=== PATIENT | female | born 1960 | race Caucasian/White ===

== ENCOUNTER 2016-09-18 17:02 | Emergency (ER) | payer BC ==
[2016-09-18 17:51] VITALS: BP 112/84
--- NOTE | 2016-09-18 18:04 | UC ---
HPI Febrile Illness - HPI Summary HPI Summary: "I feel like I have the flu." Achey all over, feels feverish, chilled, "absolutely no energy", skin sensitivity, headache. Woke last night with OSEI and chills, didn't measure temp. Diagnosed with mild UTI 3d ago, her MD waited for culture result and then called in Macrobid which she started yesterday. No urinary symptoms today. No flank pain. MIld nausea, no vomiting or diarrhea. WAs able to force herself to eat some food today. 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 No flu shot this year - History of Current Complaint Chief Complaint: UCRespiratory Time Seen by Provider: 09/18/16 17:51 Hx Obtained From: Patient Timing: Constant Initial Severity: Mild Current Severity: Moderate Aggravating Factors: Nothing Alleviating Factors: Nothing Associated Signs and Symptoms: Arthralgia, Chills, Fluid Intake - decreased, Headache, Joint Pain, Myalgia, Nausea, Weakness - Risk Factors Pseudomonas Risk Factors: Negative Serious Bacterial Infection Risk Factors: Negative - Allergy/Home Medications Allergies/Adverse Reactions: Allergies Allergy/AdvReac Type Severity Reaction Status Date / Time Amoxicillin Allergy Unknown Unknown Verified 09/18/16 17:46 Reaction Details Codeine AdvReac Severe RAPID Verified 09/18/16 17:46 [From Tylenol W/Codeine] HEARTBEAT, JITTERY Celecoxib [From Celebrex] AdvReac Mild HORRIBLE Verified 09/18/16 17:46 CHEST PAIN Home Medications: Home Medications Acetaminophen [Acetaminophen Extra Stren] 1,000 mg PO Q6H PRN 09/18/16 [History Confirmed 09/18/16] Cyclobenzaprine TAB* [Flexeril TAB*] 10 mg PO TID PRN 09/18/16 [History Confirmed 09/18/16] Nitrofurantoin Macrocrystals* [Macrodantin*] 100 mg PO BID PRN 09/18/16 [ History Confirmed 09/18/16] PMH/Surg Hx/FS Hx/Imm Hx Previously Healthy: Yes Musculoskeletal History: Reports: Hx Arthritis - LOW BACK Sensory History: Denies: Hx Contacts or Glasses, Hx Hearing Aid Opthamlomology History: Denies: Hx Contacts or Glasses - Cancer History Hx Chemotherapy: No Hx Radiation Therapy: No - Surgical History Surgery Procedure, Year, and Place: 2009 BILATERAL BREAST REDUCTION, [place]. 2010 DILATION AND CURETTAGE, [facility]. 1984 & 1985 CSECTION X 2, [place]. 1986 OPEN CHOLECYSTECTOMY, [place]. may 2012 bilat breast biopsies, benign,HYSTERECTOMY 2014 Hx Anesthesia Reactions: No - Immunization History Date of Influenza Vaccine: none this year Infectious Disease History: No Infectious Disease History: Denies: Hx Clostridium Difficile, Hx Hepatitis, Hx Human Immunodeficiency Virus (HIV), Hx of Known/Suspected MRSA, Hx Shingles, Hx Tuberculosis, Hx Known/ Suspected VRE, Hx Known/Suspected VRSA, History Other Infectious Disease, Traveled Outside the [place] in Last 30 Days - Family History Known Family History: Positive: Other - No FMH urinary disorder - Social History Alcohol Use: Rare Substance Use Type: Reports: None Smoking Status (MU): Light Every Day Tobacco Smoker Type: Cigarettes Amount Used/How Often: 1/4 PPD Length of Time of Smoking/Using Tobacco: 35 Years Have You Smoked in the Last Year: Yes Review of Systems Constitutional: Chills, Fatigue Skin: Negative Eyes: Negative ENT: Negative Respiratory: Negative Cardiovascular: Negative Gastrointestinal: Other - nausea Genitourinary: Negative Motor: Negative Neurovascular: Negative Musculoskeletal: Arthralgia, Myalgia Neurological: Headache, Weakness Psychological: Negative All Other Systems Reviewed And Are Negative: Yes Physical Exam Triage Information Reviewed: Yes Appearance: Well-Appearing, No Pain Distress, Well-Nourished Vital Signs: Initial Vital Signs Temp 98.8 F 09/18/16 17:43 Pulse 102 09/18/16 17:43 Resp 16 09/18/16 17:43 BP 112/84 09/18/16 17:43 Pulse Ox 95 09/18/16 17:43 Vital Signs Reviewed: Yes Eye Exam: Normal ENT Exam: Normal ENT: Positive: Pharynx normal, TMs normal. Negative: Tonsillar swelling, Tonsillar exudate, Muffled/hoarse voice Neck exam: Normal Neck: Positive: Supple Respiratory Exam: Normal Cardiovascular Exam: Normal Musculoskeletal Exam: Normal Neurological Exam: Normal Psychological Exam: Normal Skin Exam: Normal Diagnostics - Laboratory Diagnostic Studies Completed/Ordered: flu neg Course/Dx - Febrile Illness Differential Diagnoses: Medication Reaction, Pneumonia, Viremia - Diagnoses Clinic Provider Diagnoses: viral syndrome Discharge - Discharge Plan Condition: Stable Disposition: HOME Patient Education Materials: Viral Syndrome (ED) Forms: *Work Release Referrals: Mercy Brown MD [Primary Care Provider] -
== END 2016-09-18 18:48 | disposition home or self-care (01) ==
LOC: UCCORT 17:02
DX: B34.9 Viral infection, unspecified (principal); Z88.5 Allergy status to narcotic agent; Z88.0 Allergy status to penicillin; Z88.8 Allergy status to other drugs, medicaments and biological substances; F17.210 Nicotine dependence, cigarettes, uncomplicated
CPT/HCPCS: 87502; 99211; G0463

== ENCOUNTER 2017-05-31 07:47 | Emergency (ER) | payer BC ==
--- NOTE | 2017-05-31 07:53 | UC ---
Lower Extremity/Ankle HPI - HPI Summary HPI Summary: 57 year old male with back pain. Here w/ RIGHT leg pain since Sunday05/27/17. Pt states it started out as low back pain radiating to RIGHT hip down leg/foot- denies any recent injury or fall. States last night pain flared up and was unable to sleep. Feels like aching pain in leg, and tingling sensatio in foot. Pain worse w/ ambulation, and better when leg elevated. Also tried ice w/ temporary relief. Taking 800mg ibuprofen prn, last dose yesterday. No incontinence, no drop foot, no weakness, no trauma or falls [ End ] - History of Current Complaint Chief Complaint: UCLowerExtremity Stated Complaint: RIGHT LEG PAIN Time Seen by Provider: 05/31/17 07:51 Hx Obtained From: Patient Hx Last Menstrual Period: 06/2014 ?: No Onset/Duration: Gradual Onset Severity Initially: Mild Severity Currently: Moderate Aggravating Factor(s): Standing Alleviating Factor(s): Rest Able to Bear Weight: Yes - Allergies/Home Medications Allergies/Adverse Reactions: Allergies Allergy/AdvReac Type Severity Reaction Status Date / Time Amoxicillin Allergy Severe Rash Verified 05/31/17 07:52 Codeine AdvReac Severe RAPID Verified 05/31/17 07:52 [From Tylenol W/Codeine] HEARTBEAT, JITTERY Celecoxib [From Celebrex] AdvReac Mild HORRIBLE Verified 05/31/17 07:52 CHEST PAIN PMH/Surg Hx/FS Hx/Imm Hx Previously Healthy: Yes - Surgical History Surgical History: Yes Surgery Procedure, Year, and Place: 2008 BILATERAL BREAST REDUCTION, [place]. 2010 DILATION AND CURETTAGE, [facility]. 1984 & 1985 CSECTION X 2, [place]. 1986 OPEN CHOLECYSTECTOMY, [place]. may 2012 bilat breast biopsies, benign,HYSTERECTOMY 2013 - Family History Known Family History: Positive: Other - No FMH urinary disorder - Social History Lives: With Family Alcohol Use: Rare Substance Use Type: None Smoking Status (MU): Light Every Day Tobacco Smoker Type: Cigarettes Amount Used/How Often: 1/4 PPD Length of Time of Smoking/Using Tobacco: 35 Years Have You Smoked in the Last Year: Yes Cessation Counseling: Patient Advised to Stop - Immunization History Most Recent Influenza Vaccination: Not the 2016/2016 Season Most Recent Tetanus Shot: Unsure Most Recent Pneumonia Vaccination: Never Review of Systems Musculoskeletal: Arthralgia Neurological: Paresthesia Is Patient Immunocompromised?: No All Other Systems Reviewed And Are Negative: Yes Physical Exam Triage Information Reviewed: Yes Appearance: Well-Appearing, No Pain Distress, Well-Nourished Eye Exam: Normal ENT Exam: Normal Respiratory Exam: Normal Cardiovascular Exam: Normal Musculoskeletal Exam: Normal Musculoskeletal: Positive: Strength Intact, ROM Intact, Other: - bilateral paraspinal tenderness L4-5 , no step off, no sp tenderness. LE strength 5/5 and sensation intact. gait antalgic. Neurological Exam: Normal Neurological: Positive: Alert Psychological Exam: Normal Skin Exam: Normal Lower Extremity Course/Dx - Course Course Of Treatment: Go to ED if any acute concerns . Xray shows diffuse DDD. refer to ortho and f/u PCP - Differential Dx/Diagnosis Differential Diagnosis/HQI/PQRI: Infection, Sprain, Strain Provider Diagnoses: Lumbar disc degenerative disease with radiculopathy Discharge - Discharge Plan Condition: Good Disposition: HOME Prescriptions: Cyclobenzaprine HCl [Flexeril 5 mg (NF)] 5 mg PO QPM #10 tab Methylprednisolone [Medrol Dosepak 4 MG*] 0 mg PO .SEE HILLARY INSTRUCTION #1 tab Patient Education Materials: Lumbar Radiculopathy (ED) Referrals: Mercy Brown MD [Primary Care Provider] - 4 Days Barron Long MD [Medical Doctor] - 1 Day (Orthopedic referral ) Additional Instructions: Please consider physical therapy -- [facility] for Lumbar spine
[2017-05-31 08:00] VITALS: BP 146/80
--- NOTE | 2017-05-31 08:45 | RAD ---
Indication: RIGHT leg pain since May 27. Low back pain radiating to the RIGHT hip and leg and foot. Associated paresthesias. History of degenerative disc disease. Comparison: April 17, 2016 CT. Technique: AP and lateral views lumbar sacral spine. Report: Straightening relative to normal lumbar lordosis. Slight grade 1 degenerative L4-L5 retrolisthesis. Multilevel degenerative spondylosis with vertebral endplate osteophytosis. Advanced L4-L5 and moderate L5-S1 disc space narrowing with associated reactive endplate sclerosis at L4-L5. Diffuse facet joint osteoarthritis. Negative for fracture. Unremarkable paraspinal soft tissue contours. RIGHT upper quadrant and RIGHT lower quadrant surgical clips. IMPRESSION: Multilevel degenerative spondylosis and facet joint osteoarthritis with severe arthropathy at L4-L5 and progression compared with the 2006 exam.
== END 2017-05-31 08:54 | disposition home or self-care (01) ==
LOC: UCCORT 07:47
DX: M51.16 Intervertebral disc disorders with radiculopathy, lumbar region (principal)
CPT/HCPCS: 72100; 99212; G0463

== ENCOUNTER 2017-06-23 12:27 | Emergency (ER) | payer BC ==
[2017-06-23 12:54] VITALS: BP 139/77
--- NOTE | 2017-06-23 13:13 | UC ---
Respiratory Complaint HPI - HPI Summary HPI Summary: C/O ear pain, sinus pain, with coughing fits. History of ear infections. - History of Current Complaint Chief Complaint: UCRespiratory Stated Complaint: SINUS,SORE THROAT,EAR PAIN Time Seen by Provider: 06/23/17 13:05 Hx Obtained From: Patient Hx Last Menstrual Period: 06/2014 ?: No Onset/Duration: Gradual Onset, Lasting Days - 10, Still Present Severity Initially: Mild Severity Currently: Moderate Character: Cough: Nonproductive Aggravating Factors: Deep Breaths Alleviating Factors: Nothing Associated Signs And Symptoms: Positive: Chills, URI, Nasal Congestion, Hoarseness, Sinus Discomfort - Risk Factors Pulmonary Embolism Risk Factors: Smoking Cardiac Risk Factors: Smoking - Allergies/Home Medications Allergies/Adverse Reactions: Allergies Allergy/AdvReac Type Severity Reaction Status Date / Time Amoxicillin Allergy Severe Rash Verified 06/23/17 12:53 Codeine AdvReac Severe RAPID Verified 06/23/17 12:53 [From Tylenol W/Codeine] HEARTBEAT, JITTERY Celecoxib [From Celebrex] AdvReac Mild HORRIBLE Verified 06/23/17 12:53 CHEST PAIN PMH/Surg Hx/FS Hx/Imm Hx Previously Healthy: Yes - Surgical History Surgical History: Yes Surgery Procedure, Year, and Place: 2008 BILATERAL BREAST REDUCTION, [place]. 2010 DILATION AND CURETTAGE, [facility]. 1984 & 1985 CSECTION X 2, [place]. 1986 OPEN CHOLECYSTECTOMY, [place]. may 2012 bilat breast biopsies, benign,HYSTERECTOMY 2013 - Family History Known Family History: Positive: Other - No FMH urinary disorder Negative: Cardiac Disease, Hypertension, Diabetes - Social History Occupation: Employed Full-time Lives: With Family Alcohol Use: Rare Substance Use Type: None Smoking Status (MU): Light Every Day Tobacco Smoker Type: Cigarettes Amount Used/How Often: 1/4 PPD Length of Time of Smoking/Using Tobacco: 35 Years Have You Smoked in the Last Year: Yes Cessation Counseling: Patient Advised to Stop - Immunization History Most Recent Influenza Vaccination: Not the 2016/2017 Season Most Recent Tetanus Shot: Unsure Most Recent Pneumonia Vaccination: Never Review of Systems ENT: Sore Throat, Ear Ache Respiratory: Shortness Of Breath, Cough Neurological: Headache Is Patient Immunocompromised?: No All Other Systems Reviewed And Are Negative: Yes Physical Exam Triage Information Reviewed: Yes Appearance: No Pain Distress, Well-Nourished, Ill-Appearing Vital Signs: Initial Vital Signs Temp 98.3 F 06/23/17 12:50 Pulse 80 06/23/17 12:50 Resp 16 06/23/17 12:50 BP 139/77 06/23/17 12:50 Pulse Ox 100 06/23/17 12:50 Vital Signs Reviewed: Yes Eyes: Positive: Conjunctiva Clear ENT: Positive: Pharynx normal, Nasal congestion, TMs normal Neck exam: Normal Respiratory: Positive: Wheezing - expiratory wheeze with coughing Cardiovascular Exam: Normal Musculoskeletal Exam: Normal Neurological Exam: Normal Psychological Exam: Normal Skin Exam: Normal Diagnostic Evaluation - Laboratory O2 Sat by Pulse Oximetry: 100 Respiratory Course/Dx - Differential Dx/Diagnosis Differential Diagnosis/HQI/PQRI: Asthma, Lower Resp Infection, Sinusitis Provider Diagnoses: Acute URI. Acute Sinusitis. Acute bronchospasm Discharge - Discharge Plan Condition: Stable Disposition: HOME Prescriptions: Sulfamethox/Trimethoprim DS* [Bactrim DS 800/160 TAB*] 1 tab PO BID #20 tab predniSONE TAB* [Deltasone TAB*] 20 mg PO DAILY #18 tab Patient Education Materials: Upper Respiratory Infection (ED), Wheezing (ED), Sinusitis (ED), Sulfamethoxazole/Trimethoprim (By mouth), Prednisone (By mouth) Additional Instructions: Smoking Cessation Tricks. 1. Cut down by 1 cigarette per day every 2-3 days. Write the number of smokes for that day on the calendar. 2. Identify triggers to smoking: after meals, on the phone, in the car, with coffee, on breaks at work, etc. 3. Formulate a plan with a behavior to replace the smoking. Fireballs in the car , doodle pad on the phone, flavored creamer for the coffee, go for a walk after a meal or on break at work. 4. For stress smokes do deep breathing relaxation. Breath deep in through the nose hold the breath in for a few seconds then breath out slowly through the mouth. NASAL SPRAYS AND DROPS: Afrin in the PUMP/ MIST bottle. Tilt your head down and look at the floor while doing a strong sniff with the spray. Decongestant nasal sprays and drops often give dramatic relief from congestion. They are often recommended for patients with sinus infection to assist with sinus drainage. Persons with high blood pressure should consult the doctor before using these nasal sprays. Afrin and Sg-Synephrine are common [id number] preparations. They should not be used for more than five days, as "rebound" congestion can occur - - the congestion flares as the drug wears off. A way of dealing with this rebound congestion problem is to medicate only one nostril each time, allowing the other nostril to recover from the medicine' s effects. When you no longer need the drug during the day, spray only one nostril each night. This helps you sleep well without severe rebound congestion. Call the doctor if you develop severe headache, palpitations, or chest pain.
== END 2017-06-23 13:31 | disposition home or self-care (01) ==
LOC: UCCORT 12:27
DX: J98.01 Acute bronchospasm (principal); J01.90 Acute sinusitis, unspecified; F17.210 Nicotine dependence, cigarettes, uncomplicated; Z88.1 Allergy status to other antibiotic agents; Z88.5 Allergy status to narcotic agent; Z88.8 Allergy status to other drugs, medicaments and biological substances
CPT/HCPCS: 99212; G0463

== ENCOUNTER 2017-08-16 09:12 | Emergency (ER) | payer BC ==
[2017-08-16 09:54] VITALS: BP 138/77
--- NOTE | 2017-08-16 11:17 | UC ---
Throat Pain/Nasal Zelal[place] HPI - HPI Summary HPI Summary: 57 year old female with sinus pressure has had for 4 days and worsening and with sinus infection and on antibiotics and improving at this time no fever. no OSEI. - History of Current Complaint Chief Complaint: UCGeneralIllness Stated Complaint: SINUS/[place]/ALEXANDER EAR COMPLAINT Time Seen by Provider: 08/16/17 10:02 Hx Obtained From: Patient Hx Last Menstrual Period: 06/2014 Onset/Duration: Gradual Onset Severity: Moderate Pain Intensity: 2 Pain Scale Used: 0-10 Numeric - Allergies/Home Medications Allergies/Adverse Reactions: Allergies Allergy/AdvReac Type Severity Reaction Status Date / Time Amoxicillin Allergy Severe Rash Verified 08/16/17 09:54 Codeine AdvReac Severe RAPID Verified 08/16/17 09:54 [From Tylenol W/Codeine] HEARTBEAT, JITTERY Celecoxib [From Celebrex] AdvReac Mild HORRIBLE Verified 08/16/17 09:54 CHEST PAIN PMH/Surg Hx/FS Hx/Imm Hx Previously Healthy: Yes - Surgical History Surgical History: Yes Surgery Procedure, Year, and Place: 2008 BILATERAL BREAST REDUCTION, [place]. 2010 DILATION AND CURETTAGE, [facility]. 1984 & 1985 CSECTION X 2, [place]. 1986 OPEN CHOLECYSTECTOMY, [place]. may 2012 bilat breast biopsies, benign,HYSTERECTOMY 2013 - Family History Known Family History: Positive: Other - No FMH urinary disorder Negative: Cardiac Disease, Hypertension, Diabetes - Social History Occupation: Employed Full-time Lives: With Family Alcohol Use: Rare Substance Use Type: None Smoking Status (MU): Light Every Day Tobacco Smoker Type: Cigarettes Amount Used/How Often: 1/4 PPD Length of Time of Smoking/Using Tobacco: 35 Years Have You Smoked in the Last Year: Yes - Immunization History Most Recent Influenza Vaccination: Not the 2016/2017 Season Most Recent Tetanus Shot: Unsure Most Recent Pneumonia Vaccination: Never Review of Systems ENT: Sore Throat, Ear Ache, Nasal Discharge, Sinus Congestion, Sinus Pain/ Tenderness Respiratory: Cough All Other Systems Reviewed And Are Negative: Yes Physical Exam Triage Information Reviewed: Yes Appearance: Well-Appearing, No Pain Distress, Well-Nourished Vital Signs: Initial Vital Signs Temp 97.8 F 08/16/17 09:50 Pulse 72 08/16/17 09:50 Resp 16 08/16/17 09:50 BP 138/77 08/16/17 09:50 Pulse Ox 99 08/16/17 09:50 Vital Signs Reviewed: Yes Eye Exam: Normal ENT Exam: Normal ENT: Positive: Sinus tenderness - b/l frontal Neck exam: Normal Respiratory Exam: Normal Cardiovascular Exam: Normal Musculoskeletal Exam: Normal Neurological Exam: Normal Psychological Exam: Normal Skin Exam: Normal Throat Pain/Nasal Course/Dx - Course Course Of Treatment: appears viral at this time advise supportivw care for 3-4 days and if sx worsen then start abx - Differential Dx/Diagnosis Differential Diagnosis/HQI/PQRI: Sinusitis, Tonsillitis Provider Diagnoses: sinusitis Discharge - Discharge Plan Condition: Good Disposition: HOME Prescriptions: Benzonatate [Benzonatate 200 MG] 200 mg PO TID #20 cap Cefdinir [Cefdinir 300 MG CAP] 300 mg PO BID #20 cap Patient Education Materials: Sinusitis (ED) Referrals: Mercy Brown MD [Primary Care Provider] - 4 Days Additional Instructions: As we discussed you likely have a viral sinusitis and advise to treat supportively . If your symptoms worsen in the next 3-4 days then start the antibiotic.
== END 2017-08-16 10:19 | disposition home or self-care (01) ==
LOC: UCCORT 09:12
DX: J32.9 Chronic sinusitis, unspecified (principal); Z72.0 Tobacco use
CPT/HCPCS: 99212; G0463

== ENCOUNTER 2017-08-27 10:33 | Emergency (ER) | payer BC | END 2017-08-27 11:29 | disposition left against medical advice (07) | LOC: UCCORT 10:33 | DX: R05 Cough (principal); M54.5 Low back pain; Z53.21 Procedure and treatment not carried out due to patient leaving prior to being seen by health care provider ==

== ENCOUNTER 2017-12-02 09:24 | Emergency (ER) | payer BC ==
[2017-12-02 10:17] VITALS: BP 124/81
--- NOTE | 2017-12-02 10:31 | UC ---
Complaint Female HPI - HPI Summary HPI Summary: C/O UTI sx with urgency, frequency and dysuria. - History Of Current Complaint Stated Complaint: URINARY COMPLAINT Hx Obtained From: Patient Hx Last Menstrual Period: 06/2014 ?: No Onset/Duration: Sudden Onset, Still Present Timing: Constant Severity Initially: Mild Severity Currently: Mild Pain Intensity: 3 Character: Sharp, Burning Aggravating Factor(s): Urination Associated Signs And Symptoms: Negative: Fever, Back Pain, Vaginal Bleeding/ Discharge, Vaginal Discharge Related Hx: Similar Episode/Dx as: - UTI - Allergies/Home Medications Allergies/Adverse Reactions: Allergies Allergy/AdvReac Type Severity Reaction Status Date / Time amoxicillin Allergy Severe Rash Verified 12/02/17 10:12 celecoxib [From Celebrex] Allergy Severe Chest Pain Verified 12/02/17 10:13 codeine Allergy Tachycardia Verified 12/02/17 10:12 Home Medications: Home Medications Ibuprofen TAB* [Motrin TAB* 800 MG] 800 mg PO ONCE PRN 12/02/17 [History Confirmed 12/02/17] Pumpkin Seed Extract/Soy Germ [Azo Bladder Control Capsule] 1 cap PO BID PRN 04/13 [History Confirmed 12/02/17] PMH/Surg Hx/FS Hx/Imm Hx Previously Healthy: Yes - Surgical History Surgical History: Yes Surgery Procedure, Year, and Place: 2008 BILATERAL BREAST REDUCTION, [place]. 2010 DILATION AND CURETTAGE, [facility]. 1984 & 1985 CSECTION X 2, [place]. 1986 OPEN CHOLECYSTECTOMY, [place]. may 2012 bilat breast biopsies, benign,HYSTERECTOMY 2013 - Family History Known Family History: Positive: Other - No FMH urinary disorder Negative: Cardiac Disease, Hypertension, Diabetes - Social History Occupation: Employed Full-time Lives: With Family Alcohol Use: Rare Substance Use Type: None Smoking Status (MU): Light Every Day Tobacco Smoker Type: Cigarettes Amount Used/How Often: 1/4 PPD Length of Time of Smoking/Using Tobacco: 35 Years Have You Smoked in the Last Year: Yes - Immunization History Most Recent Influenza Vaccination: Not the 2016/2017 Season Most Recent Tetanus Shot: Unsure Most Recent Pneumonia Vaccination: Never Review of Systems Genitourinary: Dysuria, Frequency, Urgency Is Patient Immunocompromised?: No All Other Systems Reviewed And Are Negative: Yes Physical Exam Triage Information Reviewed: Yes Appearance: Well-Appearing, No Pain Distress, Well-Nourished Vital Signs: Initial Vital Signs Temp 99.3 F 12/02/17 10:05 Pulse 78 12/02/17 10:05 Resp 18 12/02/17 10:05 BP 124/81 12/02/17 10:05 Pulse Ox 99 12/02/17 10:05 Vital Signs Reviewed: Yes Eyes: Positive: Conjunctiva Clear ENT: Positive: Pharynx normal, TMs normal Neck exam: Normal Respiratory Exam: Normal Cardiovascular Exam: Normal Abdomen Description: Negative: Nontender - suprapubic tenderness, CVA Tenderness (R), CVA Tenderness (L) Bowel Sounds: Positive: Present Musculoskeletal Exam: Normal Neurological Exam: Normal Psychological Exam: Normal Skin Exam: Normal Complaint Female Dx - Differential Dx/Diagnosis Differential Diagnosis/HQI/PQRI: Appendicitis, Renal Colic, Urinary Tract Infection Provider Diagnoses: Acute cystitis Discharge - Sign-Out/Discharge Documenting (check all that apply): Discharge - Discharge Plan Condition: Stable Disposition: HOME Prescriptions: Phenazopyridine 200 mg (NF) [Pyridium 200 MG tab *] 200 mg PO TID PRN #6 tab PRN Reason: UTI symptoms Sulfamethox/Trimethoprim DS* [Bactrim DS 800/160 TAB*] 1 tab PO BID #10 tab Patient Education Materials: Urinary Tract Infection in Women (ED), Sulfamethoxazole/Trimethoprim (By mouth) Referrals: Mercy Brown MD [Primary Care Provider] - - Billing Disposition and Condition Condition: STABLE Disposition: HOME
== END 2017-12-02 10:46 | disposition home or self-care (01) ==
LOC: UCCORT 09:24
DX: N30.00 Acute cystitis without hematuria (principal); F17.210 Nicotine dependence, cigarettes, uncomplicated; Z88.6 Allergy status to analgesic agent; Z88.5 Allergy status to narcotic agent; Z88.0 Allergy status to penicillin
CPT/HCPCS: 81003; 87077; 87086; 87186; 99212; G0463

== ENCOUNTER 2018-07-16 08:25 | Emergency (ER) | payer BC ==
--- OUTSIDE RECORDS SUMMARY | 2018-07-16 08:40 | XMS REPORT ---
:1960 Author Name dany, derek Care Team Providers Name Role Phone sound, ultra Unavailable Unavailable PROBLEMS Type Condition ICD9-CM HRC16-MM Onset Condition SNOMED Code Code Code Dates Status Problem Pelvic and R10.2 Active 810252080 perineal pain Problem Unspecified N83.201 Active 71927376828298438 ovarian cyst, right side Problem Postmenopausal N95.2 Active 40993738 atrophic vaginitis Problem Unspecified N83.20 Active 05360961 ovarian cysts Problem Anal spasm K59.4 Active 27532734 Problem Dysuria R30.0 Active 89967104 ALLERGIES No Information ENCOUNTERS Encounter Location Date Diagnosis [facility] Jan, [place]BG[place], [place] [id number] [facility] Jun, [place] [id number] [facility] 103 Jun, Unspecified ovarian cyst, OBGYN [facility] right side N83.201 and [place], [place] [id number] Pelvic and perineal pain R10.2 [facility] May, Pelvic and perineal pain OBGYN [facility] R10.2 ; Unspecified ovarian [place], [place] [id number] cyst, right side N83.201 and Anal spasm K59.4 [facility] May, Pelvic and perineal pain OBGYN [facility] R10.2 [place], [place] [id number] [place] [facility] 103 Apr, Pelvic and perineal pain OBGYN [facility] R10.2 [place], [place] [id number] [place] [facility] December, Encounter for gynecological OBGYN [facility] examination (general) [place], [place] [id number] (routine) without abnormal findings Z01.419 ; Encounter for screening mammogram for malignant neoplasm of breast Z12.31 ; Encounter for screening for malignant neoplasm of colon Z12.11 and Dysuria R30.0 [place] [facility] December, [place] [id number] [place] [facility] December, Hematuria, unspecified OBGYN [facility] R31.9 and PELVIC PAIN 625.9 [place] [id number] [place] [facility] December, PELVIC PAIN 625.9 and OBGYN [facility] Ovarian cyst NOS 620.2 [place], [place] [id number] [place] [facility] Nov, [place] [id number] [place] [facility] 103 Nov, Encounter for gynecological OBGYN [facility] examination (general) [place], [place] [id number] (routine) with abnormal findings Z01.411 ; Encounter for screening mammogram for malignant neoplasm of breast Z12.31 ; Encounter for screening for malignant neoplasm of colon Z12.11 ; Postmenopausal atrophic vaginitis N95.2 ; Nicotine dependence, other tobacco product, with unspecified nicotine-induced disorders F17.299 and Dysuria R30.0 [place] [facility] 103 Apr, Unspecified ovarian cysts OBGYN [facility] N83.20 [place] [id number] [place] [facility] 103 Apr, Other ovarian cysts N83.29 [place] [id number] [place] [facility] 103 Oct, [place] [id number] [facility] [facility] 103 Oct, Encounter for gynecological OBGYN [facility] examination (general) [place], [place] [id number] (routine) without abnormal findings Z01.419 ; Encounter for screening mammogram for malignant neoplasm of breast Z12.31 ; Encounter for screening for malignant neoplasm of colon Z12.11 and Unspecified ovarian cysts N83.20 [place] [facility] 15 Oct, 2015 Other ovarian cysts N83.29 [place] [id number] [place] [facility] 15 Sep, 2015 [place] [id number] [place] [facility] 16 Apr, 2015 PELVIC PAIN 625.9 and OBGYN [facility] Ovarian cyst NOS 620.2 [place] [id number] [place] [facility] 16 Apr, 2015 PELVIC PAIN 625.9 and OBGYN [facility] Ovarian cyst NOS 620.2 [place] [id number] [place] [facility] 15 Apr, 2015 PELVIC PAIN 625.9 ; OBGYN [facility] Hematuria, microscopic [place], [place] [id number] 599.72 and CONSTIPATION NOS 564.00 [place] [facility] 19 Sep, 2014 ROUTINE TRANSPORTER DRIVER EXAMINATION OBGYN [facility] V72.31 ; SCREEN MALIG [place], [place] [id number] NEOP-COLON V76.51 and SCREEN MAMMOGRAM NEC V76.12 [facility] 103 Jul, Menometrorrhagia 626.2 [place] [id number] [place] [facility] Jul, [place] [id number] [place] [facility] Jun, Menometrorrhagia 626.2 [place] [id number] [facility] [address] [place], Jun, [facility] [id number] [facility] 103 Jun, Menometrorrhagia 626.2 [place] [id number] [place] [facility] May, [place], [place] [id number] [facility] May, [place] [id number] [facility] May, [address]ometrorrhagia [address] [place], [place] [id number] [facility] [facility] May, Menometrorrhagia 626.2 [place] [id number] [facility] May, Menometrorrhagia 626.2 [place] [id number] [place] [facility] May, Menometrorrhagia 626.2 [place] [id number] [facility] May, Menometrorrhagia 626.2 ; OBGYN [facility] PELVIC PAIN 625.9 and [place], [place] [id number] Ovarian cyst NOS 620.2 [facility] Apr, [place] [id number] [facility] Apr, [facility] PAIN 625.9 [facility] NOS 620.2 [place], [place] [id number] [facility] Apr, PELVIC PAIN 625.9 [place]YN [place] [id number] [facility] Apr, PELVIC PAIN 625.9 ; OBGYN [facility] Bloating 787.3 and Tobacco [place], [place] [id number] use disorder 305.1 [place] [facility] Nov, SCREEN MAMMOGRAM NEC V76.12 [place], [place] [id number] [place] [facility] Aug, Menometrorrhagia 626.2 and OBGYN [facility] Ovarian cyst NOS 620.2 [place], [place] [id number] [facility] Aug, Ovarian cyst NOS 620.2 [place] [id number] [place] [facility] 103 Jul, Menometrorrhagia 626.2 and OBGYN [facility] Ovarian cyst NOS 620.2 [place] [id number] [place] [facility] 103 Jul, Menometrorrhagia 626.2 and OBGYN [facility] PELVIC PAIN 625.9 [place] [id number] [place] [facility] 103 Jul, Menometrorrhagia 626.2 and OBGYN [facility] PELVIC PAIN 625.9 [place] [id number] [place] [facility] Jul, Menometrorrhagia 626.2 and OBGYN [facility] Ovarian cyst NOS 620.2 [place], [place] [id number] [facility] Jul, ROUTINE TRANSPORTER DRIVER EXAMINATION OBGYN [facility] V72.31 ; SCREEN MALIG [place], [place] [id number] NEOP-COLON V76.51 ; SCREEN MAMMOGRAM NEC V76.12 ; Menometrorrhagia 626.2 ; PELVIC PAIN 625.9 and HEMATURIA NOS 599.70 [place] [facility] Oct, [place] [id number] [facility] Sep, [place], [place] [id number] [facility] Jun, [place] [id number] [facility] 103 Jun, ROUTINE TRANSPORTER DRIVER EXAMINATION OBGYN [facility] V72.31 ; HEMATURIA NOS [place], [place] [id number] 599.70 ; Bloating 787.3 and Tobacco use disorder 305.1 [place] [facility] Apr, [place] [id number] [place] [facility] Apr, [place] [id number] [place] [facility] 103 Feb, Menometrorrhagia 626.2 ; OBGYN [facility] Endometrial polyp 621.0 and [place], [place] [id number] UTERINE FIBROIDS-UNSPEC 218.9 [facility] [address], [facility] [id number] [place] [facility] Jan, Menometrorrhagia 626.2 ; OBGYN [facility] Endometrial polyp 621.0 and [place], [place] [id number] UTERINE FIBROIDS-UNSPEC 218.9 [place] [facility] December, [place] [id number] [facility] [facility] December, Menometrorrhagia 626.2 ; OBGYN [facility] Endometrial polyp 621.0 and [place], [place] [id number] UTERINE FIBROIDS-UNSPEC 218.9 [place] [facility] December, Menometrorrhagia 626.2 [place] [id number] [place] [facility] Nov, Menometrorrhagia 626.2 [place] [id number] [facility] 103 Nov, Menometrorrhagia 626.2 ; OBGYN [facility] Endometrial polyp 621.0 and [place], [place] [id number] UTERINE FIBROIDS-UNSPEC 218.9 [place] [facility] 103 Nov, [place] [id number] [facility] Oct, [place] [id number] [place] [facility] Oct, [place] [id number] [facility] [facility] 103 Oct, BREAST DISORDER NOS 611.9 OBGYN [facility] and Menometrorrhagia 626.2 [place], [place] [id number] [place] [facility] Jun, [place] [id number] [facility] Jun, [place] [id number] [facility] Jun, Breast Mass 611.72 [place] [id number] [place] [facility] 103 Mar, ROUTINE TRANSPORTER DRIVER EXAMINATION OBGYN [facility] V72.31 and PAP SMEAR W/O [place], [place] [id number] TRANSPORTER DRIVER EXAM V76.2 [facility] Feb, [place] [id number] [place] [facility] Feb, [place], [place] [id number] [facility] 103 Mar, ROUTINE TRANSPORTER DRIVER EXAMINATION OBGYN [facility] V72.31 and Dysuria 788.1 [place] [id number] [place] [facility] Feb, [place], [place] [id number] [facility] 103 Oct, Menometrorrhagia 626.2 and OBGYN [facility] Endometrial polyp 621.0 [place] [id number] [place] [facility] Jul, Menometrorrhagia 626.2 [place] [id number] [place] [facility] Jun, [place] [id number] [place] [facility] Jun, Endometrial polyp 621.0 ; OBGYN [facility] Menometrorrhagia 626.2 and [place], [place] [id number] Stenosis of cervix 622.4 [place] [facility] Jun, Menometrorrhagia 626.2 ; OBGYN [facility] Endometrial polyp 621.0 and [place], [place] [id number] Stenosis of cervix 622.4 [place] [facility] May, Menometrorrhagia 626.2 ; OBGYN [facility] Endometrial polyp 621.0 and [place], [place] [id number] Stenosis of cervix 622.4 [place] [facility] May, Menometrorrhagia 626.2 [place] [id number] [facility] May, Menometrorrhagia 626.2 and OBGYN [facility] Endometrial polyp 621.0 [place] [id number] [place] [facility] 103 Mar, ROUTINE TRANSPORTER DRIVER EXAMINATION OBGYN [facility] V72.31 and Menometrorrhagia [place], [place] [id number] 626.2 [place] [facility] Jan, [place] [id number] [facility] [facility] Jan, Mastalgia 611.71 OBN [place] [id number] [facility] [facility] Jul, [place] [id number] [facility] May, [place] [id number] [facility] May, Abnormal Breast Findings OBGYN [facility] 793.89 ; Mastalgia 611.71 [place], [place] [id number] and Levator syndrome 564.6 [place] [facility] Apr, Levator syndrome 564.6 [place] [id number] [facility] Mar, Ovarian cyst NOS 620.2 [place] [id number] [facility] [facility] 18 Mar, 2008 ROUTINE TRANSPORTER DRIVER EXAMINATION OBGYN [facility] V72.31 and OVARIAN CYST [place], [place] [id number] NEC/NOS 620.2 [place] [facility] 29 Nov, 2007 Lump in breast 611.72 and OBGYN [facility] Abdominal pain, right upper [place], [place] [id number] quadrant 789.01 [place] [facility] 16 Nov, 2007 Lump in breast 611.72 [place] [id number] [place] [facility] May, Endometrial polyp 621.0 and OBGYN [facility] Menometrorrhagia 626.2 [place], [place] [id number] [facility] [address] [place], Apr, [facility] [id number] [place] [facility] Apr, Menometrorrhagia 626.2 ; [facility] 621.0 and [place], [place] [id number] Stenosis of cervix 622.4 [place] [facility] Mar, [facility]omet[facility]rhagia 626.2 [facility] Endomet[facility] 621.0 [place] [id number] [place] [facility] Mar, Menometrorrhagia 626.2 [facility] Endometrial polyp 621.0 [place] [id number] [place] [facility] Feb, Menometrorrhagia 626.2 and OBGYN [facility] Endometrial polyp 621.0 [place], [place] [id number] [place] [facility] Feb, Bloating 787.3 and OBGYN [facility] Menorrhagia 626.2 [place] [id number] [place] [facility] Feb, Menometrorrhagia 626.2 [facility] Endometrial polyp 621.0 [place], [place] [id number] [place] [facility] 11 Jan, 2007 OBG[place] [id number] [place] [facility] 08 Jan, 2007 Bloating 787.3 and [facility] Menorrhagia 626.2 [place] [id number] [place] [facility] 05 Jan, 2007 ROUTINE TRANSPORTER DRIVER EXAMINATION [facility] V72.31 ; Bloating 787.3 ; [place], [place] [id number] Urinary frequency 788.41 ; Enlarged uterus 621.2 and Menorrhagia 626.2 [place] [facility] Jun, Weight gain 783.1 [place] [id number] [place] [facility] May, Breast Mass 611.72 [place] [id number] [place] [facility] Jan, Menopausal symptoms 627.2 [facility] and PELVIC PAIN 625.9 [place] [id number] [place] [facility] Oct, [place] [id number] [place] [facility] Aug, [place] [id number] [place] [facility] Mar, [place] [id number] [place] [facility] Mar, Well Adult exam V 70.0 ; [facility] [place] [id number] V72.31 ; Urinary frequency 788.41 and PELVIC PAIN 625.9 IMMUNIZATIONS No Known Immunizations SOCIAL HISTORY Never Assessed REASON FOR REFERRAL FUNCTIONAL STATUS PLAN OF CARE VITAL SIGNS MEDICATIONS Unknown Medications PROCEDURES Procedure Date Ordered Result Body Site TRANSVAGINAL US, NON-OB Jul 09, 2018 RESULTS No Results REASON FOR VISIT pelvic US Insurance Providers [facility] Patient Patient Patient Patient Patient Subscriber Subscriber Subscriber Group Insurance Plan Plan Plan Plan ID Relationship Address Phone Name Date of ID Name Date of No Type Insurance Insurance Insurance Coverage to Subscriber Address Phone Name Dates Blue [phone] self [facility] [id number] Cross/Blue [id number] Cross/Blue Abdulla 9 2 [facility] [address] [place] [phone] [place] self [facility] [id number] Blue [id number] 89 Blue Abdulla 4 Cross/Blue [place] Cross/Blue Shield [address] Shield [place] [phone] [place] self [facility] [id number] [id number] Blue 02986 89 Blue Abdulla [id number] 2 [place] Cross/[place] [address] Shield Blue [phone] Blue self [facility] [id number] Cross/Blue [id number] 16 Cross/Blue Abdulla 9 [facility] [address] MEDICAL (GENERAL) HISTORY Type Description Date Medical History Bladder Infections- went to urologist in 2011- nothing found Medical History Chronic hematuria unkown cause Surgical History cholecystectomy 1985 Surgical History nipple surgery 1986 Surgical History ganglion cyst on R hand 1994 Surgical History hysteroscopy,D&C, polypectomy 05/16/07 Surgical History Breast Reduction 04/2009 Surgical History . Hysteroscopic site directed bx 07/08/09 Surgical History cystoscopy, urethra stretching- done by urologist Surgical History colonoscopy 06/05 Surgical History hysteroscopy, D & C, polypectomy 02/07/12 Surgical History bilateral breast lumpectomy- negative 05/2012 Surgical History C/S x 2 Surgical History TLH/BS/cysto 07/08/14 Hospitalization History see above Hospitalization History Childbirth
--- OUTSIDE RECORDS SUMMARY | 2018-07-16 08:40 | XMS REPORT | Continuity of Care Document ---
:1960 External Reference #:[id number] Author Name Mercy Brown MD Address [address] [place] [address] Care Team Providers Name Role Phone Mercy Brown MD Primary Care Physician Unavailable Payers Type Date Identification Numbers Payment Provider Subscriber Effective: Policy Number: [id number] [facility] Commercial Mercy Orta 2011 PayID: [id number] [address] [address] [place] [address] Onset: 2005 Policy Number: [id number] [facility] [address] [place] [address] Advance Directives Description No Information Available Problems Date Description Provider Status Onset: 09/13/2010 History of polyp of colon Mercy Brown MD Active Onset: 02/23/2015 Allergic rhinitis Mercy Brown MD Active Onset: 02/23/2015 Constipation Mercy Brown MD Active Onset: 02/23/2015 Tobacco user Mercy Brown MD Active Onset: 04/15/2018 Impaired fasting glycaemia Mercy Brown MD Active Onset: 07/30/2008 Family history of malignant neoplasm of Mercy Brown MD Inactive gastrointestinal tract Inactive: 03/13/2016 Onset: 02/23/2015 Neck pain Mercy Brown MD Resolved Resolved: 03/13/2016 Family History Date Family Member(s) Problem(s) Comments : (age Father due to 63 Years) Alcoholism : (age Mother due to Heart had a complication after 50 Years) Disease pacemaker placed Maternal Grandmother Cancer, Colon Social History Type Date Description Comments Sex Unknown Marital Status Lives With Spouse Pets 1 dog Occupation W[employer] Tobacco Use Start: Unknown End: Former Cigarette Smoker smoked about 5 cigs daily for 20 years - does not meet criteria for low dose lung cancer screening Smoking Status Reviewed: 03/26/18 Former Cigarette Smoker smoked about 5 cigs daily for 20 years - does not meet criteria for low dose lung cancer screening ETOH Use Rarely consumes alcohol Tobacco Use Start: Unknown End: Patient is a former smoker Allergies, Adverse Reactions, Alerts Date Description Reaction Status Severity Comments 01/25/2011 Amoxicillin Active 10/15/2010 Celebrex Active 08/25/2010 Codeine Active 12/12/2017 Macrobid Active Severe difficulty breathing Medications Medication Date Status Form Strength Qnty SIG Indications Ordering Provider Bupropion HCL ER 12/19 Active Tablets ER 150mg 180ta 1 tablet F17.210 Kevin (Smoking Det) 12HR bs twice daily MD [facility] Azelastine HCL 03/13 Active Solution 0.15% 30uni 2 sprays Kevin (Nasal) ts each MD [facility] nostril twice a day as needed. Cyclobenzaprine 06/05 Active Tablets 10mg 90tab take 1 JOLENE Brown s tablet by MD [facility] mouth three times a day if needed for muscle spasm do not drive when using this medication Ibuprofen 06/16 Active Tablets 800mg 90tab take 1 Kevin s tablet by MD [facility] mouth three times a day with food for 1 week then if needed Linzess Active Capsules 145mcg 1 by mouth Unknown /[address] Ambrosio Nitrofurantoin 12/11 Hx Capsules 100mg 14cap 1 by mouth R30.0 Martínez, Monohyd Macro s twice a day Phill, - x 7 days DO 12/18 Fluconazole 12/11 Hx Tablets 150mg 1tabs 1 tablet by R30.0 Mauricio mouth x 1 Phill, - DO 03/26 Phenazopyridine 10/31 Hx Tablets 200mg 30tab 1 po three R30.0 JOLENE Brown s times daily MD [facility] - as needed 03/22 Nitrofurantoin 09/15 Hx Capsules 100mg 14cap 1 po twice Fito Brownhyd Abhishek s daily x 7 MD [facility] - days 10/31 Astelin 03/13 Hx Solution 137mcg/Sp 2 sprays ray alpa Madrid MD - nostril 03/13 twice a day Astelin 03/13 Hx Solution 137mcg/Sp 2 sprays ray alpa Madrid MD - nostril 03/13 twice a day per ent Azithromycin 11/10 Hx Tablets 250mg 6tabs 2 by mouth R05 today, then MD [facility] - 1 by mouth 12/12 daily x more days Chantix 11/10 Hx Tablets 0.5mg 60tab 1 by mouth F17.210 s twice a day MD [facility] - 03/13 Lactulose 05/13 Hx Solution 10GM/15ML 600un 15 K59.00 its milliliters MD [facility] - twice a day 03/26 as needed for constipatio n Astelin 02/23 Hx Solution 137mcg/Sp 90ml 2 puffs jana Madrid MD - nostril 03/13 bid. Fluticasone 02/23 Hx Suspension 50mcg/Act 48ml 1 spray per Kevin nostril MD [facility] - every day 06/26 Amitiza 11/23 Hx Capsules 24mcg 180ca 1 by mouth K59.00 ps twice a day MD [facility] - 03/22 Azithromycin 09/14 Hx Tablets 500[facility] 5[facility] Tiesha [facility], - to [facility] if 09/24 sxs worsen expires 09/17/14 Astelin 09/02 Hx Solution 137mcg/Sp 90ml use 2 ray sprays in MD [facility] - each 02/23 nostril twice daily as needed Lactulose 10/30 Hx Solution 10GM/15ML 473un Take 15 its Milliliters MD [facility] - By Mouth 09/14 Twice A Day If Needed For Constipatio n Flonase 08/08 Hx Suspension 50mcg/Act 48gm 1 spray per Kevin nostril MD [facility] - every day 02/23 regularly Immunizations CPT Code Status Date Vaccine Lot # [id number] Given 05/27/2018 Flu Vaccine NOS [id number] Refused 06/27/2018 Shingrix (Shingles) Zoster Vaccine HZV, Recombinant , Subunit, Adj [id number] Refused 03/26/2018 Afluria Or Fluvirin Flu Vac Intramuscular [id number] Refused 11/23/2014 Tetanus And Diptheria Toxoids For Adult Use- preservative free Vital Signs Date Vital Result Comment 06/27/2018 12:58pm Weight 133.00 lb Heart Rate 90 /min BP Systolic 112 mmHg BP Diastolic 70 mmHg Respiratory Rate 18 /min Height 60.75 inches 5'0.75" O2 % BldC Oximetry 97 % Ra BMI (Body Mass Index) 25.3 kg/m2 05/31/2018 7:55am Body Temperature 98.6 F Weight 135.19 lb Heart Rate 72 /min BP Systolic 138 mmHg BP Diastolic 78 mmHg Height 60.75 inches 5'0.75" 03/22/17 BMI (Body Mass Index) 25.8 kg/m2 03/26/2018 2:18pm Weight 130.00 lb Heart Rate 72 /min BP Systolic 132 mmHg BP Diastolic 82 mmHg Respiratory Rate 17 /min Height 60.75 inches 5'0.75" 03/22/17 BMI (Body Mass Index) 24.8 kg/m2 12/19/2017 11:44am Weight 125.00 lb Heart Rate 66 /min BP Systolic 132 mmHg BP Diastolic 70 mmHg Respiratory Rate 18 /min Height 60.75 inches 5'0.75"03/22/17 O2 % BldC Oximetry 98 % BMI (Body Mass Index) 23.8 kg/m2 12/11/2017 9:21am Body Temperature 97.3 F Weight 122.00 lb Heart Rate 74 /min BP Systolic 124 mmHg BP Diastolic 76 mmHg Height 60.75 inches 5'0.75"03/22/17 BMI (Body Mass Index) 23.2 kg/m2 03/22/2017 4:28pm Weight 128.00 lb Heart Rate 76 /min BP Systolic 112 mmHg BP Diastolic 60 mmHg Respiratory Rate 18 /min Height 60.75 inches 5'0.75"03/22/17 BMI (Body Mass Index) 24.4 kg/m2 10/31/2016 4:32pm Body Temperature 97.3 F Weight 122.00 lb Heart Rate 76 /min BP Systolic 130 mmHg BP Diastolic 70 mmHg Respiratory Rate 18 /min Height 60.75 inches 5'0.75" BMI (Body Mass Index) 23.2 kg/m2 09/14/2016 3:07pm Weight 125.00 lb Heart Rate 76 /min BP Systolic 126 mmHg BP Diastolic 74 mmHg Respiratory Rate 16 /min Height 60.75 inches 5'0.75" BMI (Body Mass Index) 23.8 kg/m2 03/13/2016 2:28pm Weight 124.00 lb Heart Rate 76 /min BP Systolic 130 mmHg BP Diastolic 70 mmHg Respiratory Rate 18 /min Height 60.75 inches 5'0.75" BMI (Body Mass Index) 23.6 kg/m2 12/13/2015 3:38pm Weight 121.00 lb Heart Rate 76 /min BP Systolic 136 mmHg BP Diastolic 78 mmHg Respiratory Rate 18 /min Height 60.75 inches 5'0.75" BMI (Body Mass Index) 23.0 kg/m2 11/11/2015 9:15am Weight 119.00 lb Heart Rate 76 /min BP Systolic 132 mmHg BP Diastolic 70 mmHg Respiratory Rate 18 /min Height 60.75 inches 5'0.75" BMI (Body Mass Index) 22.7 kg/m2 05/13/2015 4:11pm Weight 125.00 lb Heart Rate 76 /min BP Systolic 112 mmHg BP Diastolic 80 mmHg Respiratory Rate 18 /min Height 60.75 inches 5'0.75" BMI (Body Mass Index) 23.8 kg/m2 02/23/2015 8:44am Weight 125.00 lb Heart Rate 84 /min BP Systolic 118 mmHg BP Diastolic 78 mmHg Respiratory Rate 18 /min Height 60.75 inches 5'0.75" BMI (Body Mass Index) 23.8 kg/m2 11/23/2014 3:24pm Weight 129.00 lb Heart Rate 68 /min BP Systolic 132 mmHg BP Diastolic 88 mmHg Respiratory Rate 18 /min Height 60.75 inches 5'0.75" BMI (Body Mass Index) 24.6 kg/m2 09/14/2014 4:10pm Body Temperature 97.1 F Weight 127.00 lb Heart Rate 76 /min BP Systolic 130 mmHg BP Diastolic 80 mmHg Respiratory Rate 18 /min Height 60.75 inches 5'0.75" O2 % BldC Oximetry 98 % Ra BMI (Body Mass Index) 24.2 kg/m2 08/14/2014 3:14pm Weight 127.00 lb Heart Rate 76 /min BP Systolic 122 mmHg BP Diastolic 80 mmHg Respiratory Rate 18 /min Height 60.75 inches 5'0.75" (Done On 09/02/13) 03/04/2014 11:05am Body Temperature 97.2 F Weight 123.00 lb Heart Rate 64 /min BP Systolic 132 mmHg BP Diastolic 72 mmHg Respiratory Rate 18 /min Height 60.75 inches 5'0.75" (Done On 09/02/13) 02/23/2014 3:40pm Weight 125.00 lb Heart Rate 72 /min BP Systolic 128 mmHg BP Diastolic 74 mmHg Respiratory Rate 17 /min Height 60.75 inches 5'0.75" (Done On 09/02/13) 01/28/2014 2:41pm Body Temperature 97.5 F Weight 127.00 lb Heart Rate 70 /min BP Systolic 136 mmHg BP Diastolic 70 mmHg Respiratory Rate 18 /min Height 60.75 inches 5'0.75" (Done On 09/02/13) 11/18/2013 3:23pm Body Temperature 97.5 F Weight 127.00 lb Heart Rate 72 /min BP Systolic 134 mmHg BP Diastolic 72 mmHg Respiratory Rate 16 /min Height 60.75 inches 5'0.75" (Done On 09/02/13) 11/10/2013 3:22pm Body Temperature 98.7 F Weight 127.00 lb Heart Rate 76 /min BP Systolic 140 mmHg BP Diastolic 80 mmHg Respiratory Rate 16 /min Height 60.75 inches 5'0.75" (Done On 09/02/13) 09/02/2013 1:45pm Body Temperature 97.5 F Weight 126.00 lb Heart Rate 76 /min BP Systolic 124 mmHg BP Diastolic 80 mmHg Respiratory Rate 16 /min Height 60.75 inches 5'0.75" 11/20/2012 9:09am Body Temperature 97.4 F Weight 129.00 lb Heart Rate 84 /min BP Systolic 130 mmHg BP Diastolic 90 mmHg Respiratory Rate 16 /min Height 61 inches 5'1" (Done On 11/05/12) 11/05/2012 3:02pm Weight 128.00 lb Heart Rate 72 /min BP Systolic 124 mmHg BP Diastolic 80 mmHg Respiratory Rate 16 /min Height 61 inches 5'1" 08/28/2012 3:34pm Weight 126.44 lb Heart Rate 72 /min BP Systolic 130 mmHg BP Diastolic 60 mmHg Respiratory Rate 18 /min 07/15/2012 10:33am Body Temperature 97.4 F Weight 129.00 lb Heart Rate 76 /min BP Systolic 128 mmHg BP Diastolic 72 mmHg Respiratory Rate 16 /min Height 61.25 inches 5'1.25" (Done On 10/31/11) 10/31/2011 11:08am Weight 132.00 lb Heart Rate 72 /min BP Systolic 130 mmHg BP Diastolic 80 mmHg Respiratory Rate 16 /min Height 61.25 inches 5'1.25" 08/08/2011 3:28pm Body Temperature 97.5 F Weight 128.44 lb Heart Rate 84 /min BP Systolic 136 mmHg BP Diastolic 74 mmHg Respiratory Rate 18 /min Height 61 inches 5'1" (Done On 01/25/11) 07/17/2011 3:21pm Body Temperature 97.4 F Weight 130.25 lb Heart Rate 76 /min BP Systolic 130 mmHg BP Diastolic 76 mmHg Respiratory Rate 18 /min Height 61 inches 5'1" (Done On 01/25/11) 04/18/2011 10:45am Body Temperature 97.1 F Weight 129.00 lb Heart Rate 76 /min BP Systolic 130 mmHg BP Diastolic 74 mmHg Respiratory Rate 16 /min Height 61 inches 5'1" (Done On 01/25/11) 01/25/2011 9:41am Body Temperature 98.0 F Weight 129.00 lb Heart Rate 72 /min BP Systolic 114 mmHg l arm BP Diastolic 84 mmHg l arm Respiratory Rate 18 /min Height 61 inches 5'1" 10/15/2010 9:52am Body Temperature 98.5 F Weight 131.00 lb Heart Rate 68 /min BP Systolic 110 mmHg BP Diastolic 60 mmHg Respiratory Rate 14 /min 08/25/2010 11:13am Body Temperature 98.9 F Weight 130.00 lb Heart Rate 80 /min BP Systolic 114 mmHg l arm BP Diastolic 64 mmHg l arm Respiratory Rate 18 /min O2 % BldC Oximetry 99 % Ra 08/01/2010 3:50pm Body Temperature 97.7 F Weight 131.00 lb Heart Rate 82 /min BP Systolic 110 mmHg BP Diastolic 80 mmHg 06/16/2010 2:04pm Body Temperature 98.9 F Heart Rate 79 /min BP Systolic 100 mmHg BP Diastolic 70 mmHg 01/31/2010 11:05am Body Temperature 97.3 F Weight 127.00 lb Heart Rate 84 /min BP Systolic 110 mmHg BP Diastolic 64 mmHg Respiratory Rate 16 /min 01/10/2010 11:13am Body Temperature 97.1 F Weight 125.00 lb Heart Rate 84 /min BP Systolic 92 mmHg BP Diastolic 64 mmHg Respiratory Rate 16 /min Height 61 inches 5'1" 07/07/2009 9:04am Body Temperature 97.5 F Weight 133.00 lb Heart Rate 88 /min BP Systolic 110 mmHg BP Diastolic 72 mmHg Respiratory Rate 18 /min 03/04/2009 2:20pm Weight 134.00 lb Heart Rate 84 /min BP Systolic 122 mmHg BP Diastolic 72 mmHg Respiratory Rate 16 /min 12/29/2008 1:40pm Body Temperature 97.7 F Weight 137.00 lb Heart Rate 84 /min BP Systolic 120 mmHg BP Diastolic 80 mmHg Respiratory Rate 18 /min 12/24/2008 1:43pm Body Temperature 97.5 F Weight 139.00 lb Heart Rate 72 /min BP Systolic 120 mmHg BP Diastolic 74 mmHg Respiratory Rate 16 /min 11/27/2008 2:49pm Weight 135.00 lb Heart Rate 96 /min BP Systolic 100 mmHg BP Diastolic 60 mmHg Respiratory Rate 18 /min Height 61 inches 5'1" 09/08/2008 10:10am Weight 135.19 lb Heart Rate 88 /min BP Systolic 112 mmHg BP Diastolic 76 mmHg Respiratory Rate 16 /min Height 61.5 inches 5'1.50" 08/31/2008 4:09pm Weight 133.00 lb Heart Rate 80 /min BP Systolic 120 mmHg BP Diastolic 74 mmHg Respiratory Rate 16 /min Height 61.5 inches 5'1.50" 08/24/2008 4:12pm Weight 131.00 lb Heart Rate 71 /min BP Systolic 130 mmHg BP Diastolic 90 mmHg Respiratory Rate 16 /min Height 61.5 inches 5'1.50" 07/30/2008 1:46pm Body Temperature 97.5 F Weight 138.00 lb Heart Rate 88 /min BP Systolic 122 mmHg BP Diastolic 76 mmHg Respiratory Rate 18 /min Height 61.5 inches 5'1.50" 04/14/2008 4:09pm Body Temperature 97.5 F Weight 136.00 lb Heart Rate 80 /min BP Systolic 120 mmHg BP Diastolic 74 mmHg Respiratory Rate 16 /min Height 61.5 inches 5'1.50" 12/30/2007 3:52pm Weight 133.31 lb Heart Rate 84 /min BP Systolic 120 mmHg BP Diastolic 76 mmHg Respiratory Rate 16 /min Height 61.5 inches 5'1.50" 11/26/2007 10:32am Body Temperature 98.7 F Weight 130.31 lb Heart Rate 80 /min BP Systolic 110 mmHg BP Diastolic 68 mmHg Respiratory Rate 16 /min Height 61.5 inches 5'1.50" 11/15/2007 11:40am Body Temperature 98.5 F Weight 132.00 lb Heart Rate 88 /min BP Systolic 128 mmHg BP Diastolic 80 mmHg Respiratory Rate 18 /min Height 61.5 inches 5'1.50" O2 % BldC Oximetry 96 % 10/09/2007 9:44am Body Temperature 97.1 F Weight 134.00 lb Heart Rate 68 /min BP Systolic 128 mmHg BP Diastolic 86 mmHg Respiratory Rate 18 /min Height 61.5 inches 5'1.50" 06/03/2007 3:53pm Body Temperature 97.0 F Weight 133.00 lb Heart Rate 80 /min BP Systolic 124 mmHg BP Diastolic 84 mmHg Respiratory Rate 16 /min Height 61.5 inches 5'1.50" 02/28/2007 4:14pm Weight 132.38 lb Heart Rate 76 /min BP Systolic 106 mmHg BP Diastolic 70 mmHg Respiratory Rate 16 /min Height 61.5 inches 5'1.50" 10/24/2006 2:07pm Weight 134.00 lb Heart Rate 79 /min BP Systolic 120 mmHg BP Diastolic 72 mmHg Respiratory Rate 18 /min Height 61.5 inches 5'1.50" 01/18/2006 10:58am Body Temperature 97.0 F Weight 137.00 lb Heart Rate 113 /min BP Systolic 114 mmHg BP Diastolic 90 mmHg Respiratory Rate 15 /min Height 61.5 inches 5'1.50" 12/06/2005 11:10am Body Temperature 97.0 F Weight 137.00 lb BP Systolic 100 mmHg BP Diastolic 70 mmHg Respiratory Rate 14 /min Height 61.5 inches 5'1.50" 11/07/2005 4:30pm Weight 137.00 lb Heart Rate 72 /min BP Systolic 140 mmHg BP Diastolic 90 mmHg Respiratory Rate 20 /min Height 61.5 inches 5'1.50" 10/31/2005 8:02am Weight 137.00 lb Heart Rate 88 /min BP Systolic 118 mmHg BP Diastolic 76 mmHg Respiratory Rate 18 /min Height 61.5 inches 5'1.50" Results Test Date Facility Test Result H/L Range Note Hemoglobin A1c 04/15/2018 [facility] Hemoglobin A1c 6.6 % High 4.1-5.9 1 Estimated Average Glucose Calc 143 mg/dL High 71-140 Laboratory test 04/15/2018 [facility] Glucose 132 mg/dL High 70-105 finding Laboratory test 03/19/2018 [facility] Hepatitis C NON REACTIVE Non Reactive 2, 3 finding Virus Antibody S/CORatio([facility] CBC With Auto 03/19/2018 [facility] WBC 6.3 K/uL 4.1-11.0 Diff RBC 5.03 M/uL 4.00-5.40 Hemoglobin 14.5 gm/dL 12.0-16.0 Hematocrit 43.7 % 36.0-47.0 MCV 86.9 fL 80.0-97.0 MCH 28.9 pg 27.0-32.0 MCHC 33.2 g/dL 32.0-36.0 RDW 13.7 % 11.5-14.5 PLT Count 230 K/ul 140-400 MPV 8.5 FL 7.1-10.7 Neutrophil 58.7 % 35.0-75.0 Lymphocyte 32.2 % 16.0-52.0 Monocyte 7.4 % 2.0-10.0 Eosinophil 1.3 % 0.0-5.0 Basophil 0.4 % 0.0-4.0 Abs Neutrophils 3.7 K/uL 2.1-8.0 Abs Lymphocytes 2.0 K/uL 0.8-5.5 Abs Monocytes 0.5 K/uL 0.1-1.0 Abs Eosinophils 0.1 K/uL 0.0-0.5 Abs Basophils 0.0 K/uL 0.0-0.3 Laboratory test finding 03/19/2018 [facility] TSH 3.09 uIU/mL 0.35-4.94 Comprehensive Met Panel-[facility] 03/19/2018 [facility] Sodium 138 mmol/L 135- 146 4 Potassium 4.4 mmol/L 3.5-5.2 Chloride# 102 mmol/L 97-110 5 Carbon Dioxide 25 mmol/L 24-34 Glucose 138 mg/dL High 70-105 BUN 15 mg/dL 6-26 Creatinine 0.7 mg/dL 0.5-1.4 Calcium 9.4 mg/dL 8.5-10.2 Total Protein 7.1 g/dL 6.0-8.0 Albumin 4.3 g/dL 3.6-4.9 Globulin 2.8 g/dL 2.0-3.5 A/G Ratio 1.5 Ratio 1.0-2.2 Total Bilirubin 0.4 mg/dL 0.1-1.3 Alkaline Phosphatase 54 U/L 24-140 Alt 14 U/L 3-42 Ast 12 U/L 8-42 Caryl Egfr >60 >60 6 Non Caryl Egfr >60 >60 7 Anion Gap 11 mmol/L 5-15 8 Lipid 03/19/2018 [facility] Cholesterol 222 mg/dL High 50-199 Triglycerides 113 mg/dL 30-200 HDL 71 mg/dL 35-85 9 Chol/ HDL Ratio 3.1 ratio Low 3.7-5.6 VLDL 23 mg/dL 2-29 LDL (Calc) 129 mg/dL High 20-99 10 [facility] Microbiology res 11 finding <SEE NOTE> CBS W/Automated 12/11/2017 [facility] White Blood 8.2 K/ uL N 3.1-10 12 Diff (315)- - Count .7 Red Blood Count 4.51 M/uL N 3.90-5.40 Hemoglobin 13.3 gm/dL N 11.6-15.8 Hematocrit 39.8 % N 36.0-46.1 Mean Cell Volume 88.2 fl N 80.9-99.0 Mean Corpuscular HGB 29.5 pg N 25.9-32.7 Mean Corpuscular HGB Conc 33.4 g/dL N 30.8-34.3 Platelet Count 229 K/uL N 155-360 Red Cell Distri Width SD 41.9 fl N 3-47 Red Cell Distri Width %CV 13.4 % N 11.7-14.4 Mean Platelet Volume 9.6 fL N 8.9-12.4 Neut% 77.7 % High 40.4-72.8 Lymph % 19.9 % Low 20.0-42.0 [place] % 1.7 % Low 4.3-13.2 Eo% 0.6 % N 0.0-6.6 Bas% 0.1 % N 0.0-1.1 Neut# 6.33 K/uL N 1.8-7.0 Lymph # 1.62 K/uL N 1.0-4.0 [place] # 0.14 K/uL Low 0.3-0.9 Eos # 0.05 K/uL N 0.0-0.5 Baso # 0.01 K/uL N 0.0-0.1 Urine Culture 12/25/2016 [facility] Urine Culture URETHRAL ARMAND 13 (315)- - Quantity 10,000 - 50,000 <SEE NOTE> N 14 Ua RFX Micro & 12/25/2016 [facility] Urine Color YELLOW Yellow Culture II (315)- - Urine Clarity CLEAR Clear Urine Glucose - Dipstick NEGATIVE mg/dL Negative Urine Bilirubin - Dipstick NEGATIVE Negative Urine Ketone NEGATIVE mg/dL Negative Urine Specific [place] <=1.005 Low 1.010-1.030 Urine Blood TRACE Negative Urine PH 6.0 Low 6.5-7.5 Urine Protein - Dipstick NEGATIVE mg/dL Negative Urine Urobilinogen - Dipstick 0.2 E.U./dL N 0.2-1.0 Urine Nitrite - Dipstick NEGATIVE Negative Urine Leuk Esterase NEGATIVE Negative Source: URINE, CLEAN CAT <SEE NOTE> 15 Laboratory test 12/21/2016 [facility] Urine Culture NO GROWTH: 16, 17 finding (315)- - FINAL <SEE NOTE> Ua RFX Micro & 12/21/2016 [facility] Urine Color YELLOW Yellow Culture II (315)- - Urine Clarity SL CLOUDY Clear Urine Glucose - Dipstick NEGATIVE mg/dL Negative Urine Bilirubin - Dipstick NEGATIVE Negative Urine Ketone NEGATIVE mg/dL Negative Urine Specific [place] 1.020 N 1.010-1.030 Urine Blood TRACE Negative Urine PH 8.0 High 6.5-7.5 Urine Protein - Dipstick NEGATIVE mg/dL Negative Urine Urobilinogen - Dipstick 0.2 E.U./dL N 0.2-1.0 Urine Nitrite - Dipstick NEGATIVE Negative Urine Leuk Esterase NEGATIVE Negative Source: URINE, CLEAN CAT <SEE NOTE> 18 Laboratory test 10/31/2016 [facility]rine Culture Microbiology res 19 finding <SEE NOTE> Laboratory test [facility] Microbiology res Abnormal 20 finding <SEE NOTE> CBC With Auto [facility]2016 [facility] WBC 6.0 K/uL 4.1-11 21 Diff .0 RBC 4.76 M/uL 4.00-5.40 Hemoglobin 14.0 gm/dL 12.0-16.0 Hematocrit 42.3 % 36.0-47.0 MCV 89.0 fL 80.0-97.0 MCH 29.4 pg 27.0-32.0 MCHC 33.0 g/dL 32.0-36.0 RDW 13.9 % 11.5-14.5 PLT Count 245 K/ul 140-400 Neutrophil 59.5 % 35.0-75.0 Lymphocyte 31.7 % 16.0-52.0 Monocyte 6.5 % 2.0-10.0 Eosinophil 1.6 % 0.0-5.0 Basophil 0.7 % 0.0-4.0 Abs Neutrophils 3.6 K/uL 2.1-8.0 Abs Lymphocytes 1.9 K/uL 0.8-5.5 Abs Monocytes 0.4 K/uL 0.1-1.0 Abs Eosinophils 0.1 K/uL 0.0-0.5 Abs Basophils 0.0 K/uL 0.0-0.3 Comprehensive Metabolic (CMP) 08/22/2016 [facility] Sodium 138 mmol/L 134- 142 Potassium 4.1 mmol/L 3.5-5.2 Chloride 103 mmol/L 97-109 Carbon Dioxide 29 mmol/L 24-34 Glucose 109 mg/dL High 70-105 BUN 10 mg/dL 6-26 Creatinine 0.6 mg/dL 0.5-1.4 Calcium 8.7 mg/dL 8.5-10.2 Total Protein 6.6 g/dL 6.0-8.0 Albumin 4.0 g/dL 3.6-4.9 Globulin 2.6 g/dL 2.0-3.5 A/G Ratio 1.5 Ratio 1.0-2.2 Total Bilirubin 0.5 mg/dL 0.1-1.3 Alkaline Phosphatase 42 U/L 24-140 Alt 22 U/L 3-42 Ast 19 U/L 8-42 Anion Gap 10 mmol/L 6-14 Caryl Egfr >60 >60 22 Non Caryl Egfr >60 >60 23 Laboratory test 08/22/2016 [facility] TSH 1.47 uIU/mL 0.35-4.94 finding Laboratory test 12/13/2015 [facility] Urine Culture Microbiology res 24 finding <SEE NOTE> Laboratory test 08/15/2014 N2N/CCD Import Alb/Glob 1.1 ratio finding Albumin 3.9 g/dL 3.4-5.0 Alkaline Phosphatase 54 U/L 45-117 Anion Gap 6 mEq/L Low 8-16 BUN 13 mg/dL 7-18 BUN/Creat 18.5 ratio Bas% 0.2 % 0.0-1.1 Baso # 0.02 K/uL 0.0-0.1 Bilirubin,Total 0.3 mg/dL 0.2-1.0 Calcium 8.5 mg/dL 8.5-10.1 Carbon Dioxide 31 mmol/L 21-32 Chloride 108 mmol/L High 98-107 Creatinine 0.7 mg/dL 0.6-1.3 Eo% 1.2 % 0.0-6.6 Eos # 0.10 K/uL 0.0-0.5 Globulin 3.4 g/dL 1.9-4.3 Glom Filtration Rate, Estimate >60 mL/min >60 Glucose 114 mg/dL High 74-106 Hematocrit 40.1 % 36.0-46.1 Hemoglobin 13.6 gm/dL 11.6-15.8 If >60 mL/min >60 25 Lymph # 2.17 K/uL 0.8-3.4 Lymph % 26.0 % 17.0-46.1 Mean Cell Volume 88.9 fl 80.9-99.0 Mean Corpuscular HGB 30.2 pg 25.9-32.7 Mean Corpuscular HGB Conc 33.9 g/dL 30.8-34.3 Mean Platelet Volume 10.3 fL 8.9-12.4 [place] # 0.54 K/uL 0.3-0.9 [place] % 6.5 % 4.3-13.2 Neut# 5.52 K/uL 1.0-7.0 Neut% 66.1 % 40.4-72.8 Platelet Count 258 K/uL 155-360 Potassium 4.2 mmol/L 3.5-5.1 Red Blood Count 4.51 M/uL 3.90-5.40 Red Cell Distri Width %CV 13.6 % 11.7-14.4 Red Cell Distri Width SD 43.3 fl 3-47 SGPT/Alt 28 U/L 12-78 Sgot/Ast 14 U/L Low 15-37 26 Sodium 141 mmol/L 136-145 Thyroid Stim Hormone 1.43 uIU/mL 0.36-3.74 Total Protein 7.3 g/dL 6.4-8.2 White Blood Count 8.4 K/uL 3.1-10.7 LDL Cholesterol Profile 08/15/2014 N2N/CCD [facility] Cholesterol 176 mg/dL < 200 27 HDL Cholesterol 62 mg/dL > 40 28 LDL-Cholesterol 99 mg/dL < 100 29 Triglycerides 77 mg/dL < 150 30 Laboratory test finding 07/08/2014 N2N/CCD Import Hematocrit 36.2 % 36.0 -46.1 Hemoglobin 12.0 gm/dL 11.6-15.8 Mean Cell Volume 88.9 fl 80.9-99.0 Mean Corpuscular HGB 29.5 pg 25.9-32.7 Mean Corpuscular HGB Conc 33.1 g/dL 30.8-34.3 Mean Platelet Volume 10.8 fL 8.9-12.4 Platelet Count 220 K/uL 155-360 Red Blood Count 4.07 M/uL 3.90-5.40 Red Cell Distri Width %CV 13.7 % 11.7-14.4 White Blood Count 8.3 K/uL 3.1-10.7 Laboratory test 07/07/2014 N2N/CCD Import Uterus W/Wo See Note 31 finding FT/Ovary-Fibroid Type And Screen 07/07/2014 N2N/CCD Import Antibody Screen Negative Negative Patient Blood Type A Pos Laboratory test 07/07/2014 N2N/CCD Import Urine HCG Negative Negative 32 finding (Qualitative) Laboratory test 03/04/2014 N2N/CCD Import Culture Urine See Note 33 finding Laboratory test 02/23/2014 N2N/CCD Import H. Pylori Stool Positive High Negative 34 finding Antigen % Baso. 0.8 % 0.0-2.0 % Eos. 1.1 % 0.0-4.0 % Lymph 37 % 20-44 % [place] 5.1 % 2.0-10.0 % [place] 56 % 50-70 Absolute Baso. 0.1 K/ul 0.0-0.3 Absolute Eos. 0.1 K/ul 0.0-0.5 Absolute Lymph. 3.0 K/ul 0.8-4.8 Absolute [place]. 0.4 K/ul 0.1-1.0 Absolute [place]. 4.58 K/ul 2.05-7.63 BUN 6.0 mg/dL Low 7.0-18.0 BUN/Creat Ratio 10.0 ratio Low 12.0-20.0 Calcium 8.7 mg/dL 8.7-10.5 Chloride 106.0 mmol/L 98.0-107.0 Co2 24.0 mmol/L 22.0-30.0 Creatinine-Serum 0.6 mg/dL Low 0.7-1.2 Glucose 80.0 mg/dL 75.0-110.0 HCT 40.4 % 37.0-51.0 HGB 13.5 Gm/dl 12.0-16.0 MCH 29.5 pg 26.0-32.0 MCHC 33.3 g/dL 31.0-36.0 MCV 88.6 Fl 80.0-97.0 MPV 7.0 fL 6.0-10.0 PLT 252 K/ul 140-440 Potasium 3.4 mmol/L Low 3.6-5.0 RBC 4.6 M/ul 4.2-6.3 RDW 12.0 % 11.5-14.5 Sodium 141.0 mmil/L 137.0-145.0 WBC 8.2 K/ul 4.1-10.9 eGFR 111.1 Hepatic Function Panel LFT 02/23/2014 N2N/CCD Import Albumin 3.9 g/dL 3.5-5.0 Alk. Phos. 57.0 U/L 30.0-126.0 Alt 14.0 U/L 9.0-52.0 Ast 13.0 U/L Low 14.0-36.0 Total Bilirubin 0.3 mg/dL 0.2-1.3 Total Protein 6.2 g/dL Low 6.3-8.2 Laboratory test 07/30/2013 N2N/CCD Import Urine Amorph Small Negative finding Sediment Urine Bacteria Few None Seen Urine Bilirubin - Dipstick Negative Negative Urine Blood Small High Negative Urine Calcium Oxalate Crystals Few None Seen Urine Clarity Cloudy Clear Urine Color Yellow Yellow Urine Culture See Note 35 Urine Epithelial Cells Moderate None Seen /lpf 36 Urine Glucose - Dipstick Negative mg/dL Negative Urine Ketone Negative mg/dL Negative Urine Leuk Esterase Negative Negative Urine Mucus Small None Seen Urine Nitrite - Dipstick Negative Negative Urine PH 6.5 6.5-7.5 Urine Protein - Dipstick Negative mg/dL Negative Urine RBC 0-2 rbc/hpf 0-7 Urine Specific [place] 1.025 1.010-1.030 Urine Urobilinogen - Dipstick 0.2 E.U./dL 0.2-1.0 Urine WBC 0-2 wbc/hpf 0-7 Free T4 1.07 ng/dL 0.71-1.85 Hematocrit 38.3 % 36.0-46.1 Hemoglobin 12.8 gm/dL 11.6-15.8 Mean Cell Volume 89.3 fl 80.9-99.0 Mean Corpuscular HGB 29.8 pg 25.9-32.7 Mean Corpuscular HGB Conc 33.4 g/dL 30.8-34.3 Mean Platelet Volume 10.9 fL 8.9-12.4 Platelet Count 263 K/uL 155-360 Prolactin 15.3 ng/mL 3.24-29.12 Red Blood Count 4.29 M/uL 3.90-5.40 Red Cell Distri Width %CV 13.6 % 11.7-14.4 Thyroid Stim Hormone 2.53 uIU/mL 0.49-4.67 White Blood Count 8.0 K/uL 3.1-10.7 Laboratory test finding 01/23/2013 N2N/CCD Import Polyp Colon And/Or See Note 37 Rectum Laboratory test finding 11/05/2012 N2N/CCD Import Alb/Glob 1.2 ratio Albumin 4.1 g/dL 3.5-5.0 Alkaline Phosphatase 61 U/L 50-136 Anion Gap 10 mEq/L 8-16 BUN 13 mg/dL 5-23 BUN/Creat 21.6 ratio Bas% 0.3 % 0.0-1.1 Baso # 0.02 K/uL 0.0-0.1 Bilirubin,Total 0.2 mg/dL 0.2-1.2 CK-MB (Mass) 1.2 ng/mL 0.5-8.2 Calcium 9.0 mg/dL 8.5-10.1 Carbon Dioxide 29 mEq/L 18-29 Chloride 106 mmol/L 98-107 Creatinine 0.6 mg/dL 0.5-1.4 Eo% 1.8 % 0.0-6.6 Eos # 0.14 K/uL 0.0-0.5 Globulin 3.3 g/dL 1.9-4.3 Glom Filtration Rate, Estimate >60 mL/min >60 Glucose 105 mg/dL 76-115 Hematocrit 40.7 % 36.0-46.1 Hemoglobin 13.7 gm/dL 11.6-15.8 If >60 mL/min >60 38 Lymph # 3.66 K/uL High 0.8-3.4 Lymph % 46.3 % High 17.0-46.1 Mean Cell Volume 87.2 fl 80.9-99.0 Mean Corpuscular HGB 29.3 pg 25.9-32.7 Mean Corpuscular HGB Conc 33.7 g/dL 30.8-34.3 Mean Platelet Volume 10.8 fL 8.9-12.4 [place] # 0.61 K/uL 0.3-0.9 [place] % 7.7 % 4.3-13.2 Neut# 3.47 K/uL 1.0-7.0 Neut% 43.9 % 40.4-72.8 Platelet Count 261 K/uL 155-360 Potassium 4.1 mmol/L 3.5-5.1 Red Blood Count 4.67 M/uL 3.90-5.40 Red Cell Distri Width %CV 13.9 % 11.7-14.4 Red Cell Distri Width SD 43.8 fl 3-47 SGPT/Alt 21 U/L Low 30-65 Sgot/Ast 12 U/L Low 16-40 Sodium 141 mmol/L 136-145 Thyroid Stim Hormone 2.92 uIU/mL 0.49-4.67 Total Protein 7.4 g/dL 6.3-8.0 Troponin-I < 0.02 ng/mL 0.00-0.50 39 White Blood Count 7.9 K/uL 3.1-10.7 Laboratory test 07/15/2012 N2N/CCD Import Culture Urine See Note 40 finding Laboratory test 02/07/2012 N2N/CCD Import Fibroid Or Leiomyoma See Note 41 finding Of Uterus HCG, Quant < 1.0 mIU/mL 42 Laboratory test finding 10/31/2011 N2N/CCD Import A/G Ratio 1.3 1.0-2.2 Absolute Basophils 0.057 K/ul 0.0-0.3 Absolute Eosinophils 0.073 K/ul 0.0-0.5 Absolute Lymphocytes 2.88 K/ul 0.8-4.8 Absolute Monocytes 0.474 K/ul 0.1-1.0 Absolute Neutrophils 4.45 K/ul 2.05-7.63 Albumin 4.1 g/dL 3.5-5.0 Alkaline Phosphatase 61 U/L 30-126 Alt 24 U/L 9-52 Ast 20 U/L 14-36 BUN 12 mg/dL 7-18 BUN/CR Ratio 20.6 Ratio High 12-20 Basophil 0.7 % 0-2 Calcium 8.7 mg/dL 8.7-10.5 Carbon Dioxide 27 mmol/L 22-30 Chloride 102 mmol/L 98-107 Creatinine, Serum 0.6 mg/dL Low 0.7-1.2 Eosinophil 0.9 % 0-4 Free T4 1.06 ng/dL 0.75-1.54 Globulin 3.1 g/dL 2.7-4.3 Glucose 84 mg/dL 65-105 Hematocrit 42.9 % 37.0-51.0 Hemoglobin 13.6 GM/dl 12.0-16.0 Lymphocytes 36.3 % 20-44 MCH 28.1 pg 26.0-32.0 MCHC 31.8 g/dL 31.0-36.0 MCV 89 FL 80-97 Monocytes 6.0 % 2-10.0 Neutrophils 56.1 % 50-70 Platelet Count 283 K/ul 140-440 Potassium 4.2 mmol/L 3.6-5.0 RBC 4.84 M/ul 4.2-6.3 RDW 12.0 % 11.5-14.5 Sodium 141 mmol/L 137-145 TSH 1.968 uIU/ml 0.50-6.00 Total Bilirubin 0.6 mg/dL 0.2-1.3 Total Protein 7.2 g/dL 6.3-8.2 WBC 7.9 K/ul 4.1-10.9 Laboratory test 07/04/2011 N2N/CCD Import Breast Biopsy - See Note 43 finding Permanent Only Laboratory test 04/18/2011 N2N/CCD Import Culture Urine See Note 44 finding Laboratory test 10/15/2010 N2N/CCD Import Throat Culture See Note 45 finding Complete Laboratory test 09/09/2010 N2N/CCD Import Polyp Colon And/Or See Note 46 finding Rectum Laboratory test 06/16/2010 N2N/CCD Import Culture Urine See Note 47 finding Laboratory test 01/31/2010 N2N/CCD Import Atypical Lymph% 1 % 0-7 48 finding Band% 2 % 0-8 Helicobacter Pylori, Igg 3.3 U/mL High 0.0-0.8 49 Hematocrit 42.0 % 36.0-46.1 Hemoglobin 13.9 gm/dL 11.6-15.8 Lymph% 38 % 17-56 Mean Cell Volume 88.8 fl 80.9-99.0 Mean Corpuscular HGB 29.4 pg 25.9-32.7 Mean Corpuscular HGB Conc 33.1 g/dL 30.8-34.3 Mean Platelet Volume 10.4 fL 8.9-12.4 Monocyte% 3 % 0-10 Neutrophils% 56 % 33-73 Platelet Count 301 K/uL 155-360 Platelet Estimate Normal Red Blood Count 4.73 M/uL 3.90-5.40 Red Cell Distri Width %CV 13.9 % 11.7-14.4 Total Cells Counted 100 #CELLS White Blood Count 7.1 K/uL 3.1-10.7 Hepatic Function 01/31/2010 N2N/CCD Import Albumin 4.3 g/dL 3.5-5.0 Alkaline Phosphatase 70 U/L 30-126 Alt 24 U/L 9-52 Ast 23 U/L 14-36 Total Bilirubin 0.4 mg/dL 0.2-1.3 Total Protein 7.2 g/dL 6.3-8.2 Laboratory test finding 01/31/2010 N2N/CCD Import Anion Gap 14 mmol/L 10 -20 BUN 12 mg/dL 7-18 BUN/CR Ratio 19.9 Ratio 12-20 Calcium 9.1 mg/dL 8.7-10.5 Carbon Dioxide 29 mmol/L 22-30 Chloride 101 mmol/L 98-107 Creatinine, Serum 0.6 mg/dL Low 0.7-1.2 Glucose 93 mg/dL 65-105 Potassium 4.6 mmol/L 3.6-5.0 Sodium 140 mmol/L 137-145 Laboratory test 01/10/2010 N2N/CCD Import Culture Urine See Note 50 finding Laboratory test 12/29/2008 N2N/CCD Import A/G Ratio 1.5 1.0-2.2 finding Albumin 4.2 g/dL 3.5-5.0 Alkaline Phosphatase 65 U/L 30-126 Alt 22 U/L 9-52 Ast 18 U/L 14-36 Atypical Lymph% 2 % 0-7 BUN 7 mg/dL 7-18 BUN/CR Ratio 10.4 Ratio Low 12-20 Band% 2 % 0-8 Calcium 9.3 mg/dL 8.7-10.5 Carbon Dioxide 27 mmol/L 22-30 Chloride 104 mmol/L 98-107 Creatinine, Serum 0.7 mg/dL 0.7-1.2 Eosinophil% 1 % 0-5 Estradiol,Serum 298 pg/mL 51 FSH 7.1 mIU/mL 52 Globulin 2.8 g/dL 2.7-4.3 Glucose 90 mg/dL 65-105 Hematocrit 38.7 % 36.0-46.1 Hemoglobin 12.8 gm/dL 11.6-15.8 Luteinizing Hormone 21.3 mIU/mL 53 Lymph% 41 % 17-56 Mean Cell Volume 89.4 fl 80.9-99.0 Mean Corpuscular HGB 29.6 pg 25.9-32.7 Mean Corpuscular HGB Conc 33.1 g/dL 30.8-34.3 Mean Platelet Volume 10.4 fL 8.9-12.4 Monocyte% 5 % 0-10 Neutrophils% 49 % 33-73 Platelet Count 284 K/uL 155-360 Platelet Estimate Normal Potassium 4.0 mmol/L 3.6-5.0 Prolactin 28.8 ng/mL 3.24-29.12 Red Blood Count 4.33 M/uL 3.90-5.40 Red Cell Distri Width %CV 13.2 % 11.7-14.4 Sodium 139 mmol/L 137-145 TSH 2.237 uIU/ml 0.50-6.00 Total Bilirubin 0.2 mg/dL 0.2-1.3 Total Cells Counted 100 #CELLS Total Protein 7.0 g/dL 6.3-8.2 White Blood Count 7.5 K/uL 3.1-10.7 Laboratory test 11/27/2008 N2N/CCD Import Antigliadin Abs, 1.9 U/mL 0.0- 10.0 finding IgA Antigliadin Abs, IgG 0.6 U/mL 0.0-10.0 Band% 1 % 0-8 Endomysial IgA Antibody Negative Negative Eosinophil% 2 % 0-5 Helicobacter Pylori, Igg 4.1 U/mL High 0.0-0.8 54 Hematocrit 39.2 % 36.0-46.1 Hemoglobin 12.9 gm/dL 11.6-15.8 Immunoglobulin A 163 mg/dL 70-400 Lymph% 34 % 17-56 Mean Cell Volume 89.5 fl 80.9-99.0 Mean Corpuscular HGB 29.5 pg 25.9-32.7 Mean Corpuscular HGB Conc 32.9 g/dL 30.8-34.3 Mean Platelet Volume 10.1 fL 8.9-12.4 Monocyte% 8 % 0-10 Neutrophils% 55 % 33-73 Platelet Count 293 K/uL 155-360 Platelet Estimate Normal Red Blood Count 4.38 M/uL 3.90-5.40 Red Cell Distri Width %CV 13.3 % 11.7-14.4 Total Cells Counted 100 #CELLS White Blood Count 7.2 K/uL 3.1-10.7 t-Transglutaminase IgA 1 U/mL 0-3 55 t-Transglutaminase IgG 1 U/mL 0-5 56 Hepatic Function 11/27/2008 N2N/CCD Import Albumin 4.2 g/dL 3.5-5.0 Alkaline Phosphatase 61 U/L 30-126 Alt 18 U/L 9-52 Ast 19 U/L 14-36 Total Bilirubin 0.2 mg/dL 0.2-1.3 Total Protein 7.1 g/dL 6.3-8.2 Laboratory test finding 11/27/2008 N2N/CCD Import Anion Gap 11 mmol/L 10 -20 BUN 8 mg/dL 7-18 BUN/CR Ratio 13.5 Ratio 12-20 Calcium 9.3 mg/dL 8.7-10.5 Carbon Dioxide 28 mmol/L 22-30 Chloride 103 mmol/L 98-107 Creatinine, Serum 0.6 mg/dL Low 0.7-1.2 Glucose 97 mg/dL 65-105 Potassium 4.0 mmol/L 3.6-5.0 Sodium 138 mmol/L 137-145 Laboratory test 07/30/2008 N2N/CCD Import Culture Throat Normal Throat FL 57 finding <See Note> Urine Bilirubin - Dipstick Negative Negative Urine Blood Large High Negative Urine Clarity Clear Clear Urine Color Yellow Yellow Urine Epithelial Cells Few None Seen Urine Glucose - Dipstick Negative mg/dL Negative Urine Ketone Negative mg/dL Negative Urine Leuk Esterase Trace High Negative Urine Nitrite - Dipstick Negative Negative Urine PH 6.0 Low 6.5-7.5 Urine Protein - Dipstick Negative mg/dL Negative Urine RBC 0-2 rbc/hpf Negative Urine Specific [place] 1.010 1.010-1.030 Urine Urobilinogen - Dipstick 0.2 E.U./dL 0.2-1.0 Urine WBC 0-2 wbc/hpf Negative A/G Ratio 1.5 1.0-2.2 Albumin 4.4 g/dL 3.5-5.0 Alkaline Phosphatase 59 U/L 30-126 Alt 23 U/L 9-52 Ast 20 U/L 14-36 BUN 13 mg/dL 7-18 BUN/CR Ratio 20.0 Ratio 12-20 Calcium 9.1 mg/dL 8.7-10.5 Carbon Dioxide 24 mmol/L 22-30 Chloride 107 mmol/L 98-107 Creatinine, Serum 0.6 mg/dL Low 0.7-1.2 Globulin 3.0 g/dL 2.7-4.3 Glucose 90 mg/dL 65-105 Potassium 4.5 mmol/L 3.6-5.0 Sodium 141 mmol/L 137-145 Total Bilirubin 0.1 mg/dL Low 0.2-1.3 Total Protein 7.4 g/dL 6.3-8.2 Anisocytosis 1+ Atypical Lymph% 3 % 0-7 Basophil% 1 % 0-2 Eosinophil% 2 % 0-5 Hematocrit 41.4 % 36.0-46.1 Hemoglobin 14.0 gm/dL 11.6-15.8 Lymph% 42 % 17-56 Mean Cell Volume 86.8 fl 80.9-99.0 Mean Corpuscular HGB 29.4 pg 25.9-32.7 Mean Corpuscular HGB Conc 33.8 g/dL 30.8-34.3 Mean Platelet Volume 10.6 fL 8.9-12.4 Monocyte% 3 % 0-10 Neutrophils% 49 % 33-73 Platelet Count 265 K/uL 155-360 Platelet Estimate Normal Red Blood Count 4.77 M/uL 3.90-5.40 Red Cell Distri Width %CV 13.4 % 11.7-14.4 Total Cells Counted 100 #CELLS White Blood Count 7.2 K/uL 3.1-10.7 Laboratory test 10/09/2007 N2N/CCD Import Culture Urine <see comment> 58 finding Laboratory test 06/03/2007 N2N/CCD Import Alt 20 U/L 9-52 finding Ast 18 U/L 14-36 1 2-3 weeks Fastin hours 2-3 weeks Fastin hours 2 1 year 3 S/CO Ratio >/=1.0 is REACTIVE. S/CO <5.0 is Low Reactive. S/CO >/= 5.0 is High Reactive. Effective Apr 20, 2017 all anti-HCV reactive samples are sent for quantitative PCR confirmation. 4 Updated reference range on new analyzer 5 Updated reference range on new analyzer 6 Concerning GFR Guidelines for Americans: Normal function or mild renal disease, if clinically at risk: >/=60 mL/min Moderately decreased: 30-59 Severely decreased: 15-29 Renal failure: <15 7 Concerning GFR Guidelines: Normal function or mild renal disease, if clinically at risk: >/=60 mL/min Moderately decreased: 30-59 Severely decreased: 15-29 Renal failure: <15 Glomerular Filtration Rate (GFR) is estimated based on the MDRD equation, which assumes a steady state for creatinine as recommended by the National Kidney Disease Education Program in conjunction with the National Institutes of Health and the National Kidney Foundation. Clinical conditions in which it may be necessary to measure GFR by using clearance methods include extremes of age and body size, severe malnutrition or obesity, diseases of skeletal muscle, paraplegia or quadriplegia, vegetarian diet, rapidly changing kidney function, and calculation of the dose of potentially toxic drugs that are excreted by the kidneys. 8 Updated Reference Range 9 Per NCEP ATP III Guidelines: Results lower than 40 mg/dL are suggestive of increased risk for coronary artery disease. Results > or=to 60 mg/dL are considered a negative risk factor. 10 Per NCEP ATP III Guidelines: Normal Population <130 Patients with medical conditions: CHD/DM Optimal: <100 Borderline high: 130-159 High: 160-189 Very high: >189 11 Microbiology results SOURCE Random urine FINAL RESULT No growth 12 SOB 13 R31.9 14 10,000 - 50,000 CFU/mL 15 URINE, CLEAN CATCH 16 R300 17 NO GROWTH: FINAL REPORT 18 URINE, CLEAN CATCH 19 Microbiology results SOURCE Clean Catch Midstream FINAL RESULT No growth 20 Microbiology results SOURCE MIDU COLONY COUNT >100,000 CFU/ML PRELIMINARY RESULT Gram Negative Branden. ID & Sensitivity to Follow. FINAL RESULT Escherichia coli (Isolate 1) Sensitivity Analysis Isolate 1 --------- AMIKACIN <=16 S AMPICILLIN <=8 S AMPICILLIN/SULBACTAM <=8/4 S AZTREONAM <=4 S CEFAZOLIN <=2 S CEFEPIME <=8 S CEFTAZIDIME <=1 S CEFTRIAXONE <=1 S CIPROFLOXACIN <=1 S ERTAPENEM <=0.5 S GENTAMYCIN <=2 S IMIPENEM <=1 S LEVOFLOXACIN <=2 S NITROFURANTOIN <=32 S PIPERACILLIN/TAZOBACTAM <=16 S TETRACYCLINE <=4 S TOBRAMYCIN <=4 S TRIMETHOPRIM/SULFAMETHOXAZ <=2/38 S S=Sensitive;I=Indeterminate;R=Resistant 21 6 mos 22 Concerning GFR Guidelines for Americans: Normal function or mild renal disease, if clinically at risk: >/=60 mL/min Moderately decreased: 30-59 Severely decreased: 15-29 Renal failure: <15 23 Concerning GFR Guidelines: Normal function or mild renal disease, if clinically at risk: >/=60 mL/min Moderately decreased: 30-59 Severely decreased: 15-29 Renal failure: <15 Glomerular Filtration Rate (GFR) is estimated based on the MDRD equation, which assumes a steady state for creatinine as recommended by the National Kidney Disease Education Program in conjunction with the National Institutes of Health and the National Kidney Foundation. Clinical conditions in which it may be necessary to measure GFR by using clearance methods include extremes of age and body size, severe malnutrition or obesity, diseases of skeletal muscle, paraplegia or quadriplegia, vegetarian diet, rapidly changing kidney function, and calculation of the dose of potentially toxic drugs that are excreted by the kidneys. 24 Microbiology results SOURCE MIDU FINAL RESULT No growth 25 Note: Persistent reduction for 3 months or more in an eGFR <60 mL/min/1.73 m2 defines CKD. Patients with eGFR values >/=60 mL/min/1.73 m2 may also have CKD if evidence of persistent proteinuria is present. The original MDRD equation for estimated GFR is not valid for patients less than 18 years of age. Additional information may be found at www.kdoqi.org. 26 Values below the stated reference ranges of AST and ALT can be seen in normal populations. Clinical correlation is suggested. 27 Reference Guidelines*: Desirable: ........... < 200 mg/dL Borderline High: ..... 200-239 mg/dL High: ................ >=240 mg/dL * The National Cholesterol Education Program (NCEP) 28 Reference Guidelines*: Low HDL: ..... < 40 mg/dL Normal: ..... 40-60 mg/dL Desirable: ... > 60 mg/dL *The National Cholesterol Education Program(NCEP) 29 Reference Guidelines*: Optimal:........... <100 mg/dL Near Optimal....... 100-129 mg/dL Borderline High.... 130-159 mg/dL High............... 160-189 mg/dL Very High.......... >=190 mg/dL * Source: National Cholesterol Education Program ( NCEP) 30 Reference Guidelines*: Normal: ............. < 150 mg/dL Borderline High: .... 150-199 mg/dL High: ............... 200-499 mg/dL Very High: .......... > 500 mg/dL * Source: National Cholesterol Education Program (NCEP) 31 OPERATION/PROCEDURE LTH, bilateral salpingectomy, cystoscopy DIAGNOSIS: PART 1: "RIGHT FALLOPIAN TUBE": PARATUBAL CYSTS. PART 2: "LEFT FALLOPIAN TUBE": FALLOPIAN TUBE WITHOUT SIGNIFICANT PATHOLOGICAL ABNORMALITIES. PART 3: "UTERUS AND CERVIX": CERVIX: NABOTHIAN CYSTS AND CHRONIC CERVICITIS WITH SQUAMOUS METAPLASIA. ENDOMETRIUM: LATE SECRETORY ENDOMETRIUM, CONSISTENT WITH NINTH DAY POST- OVULATION, DAY 24-25 OF AN IDEAL 28 DAY CYCLE. MYOMETRIUM: ADENOMYOSIS AND LEIOMYOMATA. Imer GROSS Part 1. Received in formalin labeled, "RIGHT FALLOPIAN TUBE" is a 5.8 cm. horne-purple, soft fallopian tube with a smooth serosal surface. There is a 0.3 x 0.1 x 0.1 cm. thin- walled cyst with clear fluid inside the mid portion of the fallopian tube. Upon further sectioning the fallopian tube is otherwise unremarkable. [facility] [employer] Labor sections are submitted in one block. Part 2. Received in formalin labeled, "LEFT FALLOPIAN TUBE" is a 4.2 cm. horne-purple, soft fallopian tube with a smooth serosal surface and a diameter up to 0.5 cm. Upon further sectioning no significant gross abnormality is seen. [employer] [facility] Labor sections are submitted in block #2. Part 3. Received in formalin labeled, "UTERUS AND CERVIX" is a uterus with attached cervix without adnexa weighing 417 grams. The uterus measures 9.1 cm. from fundus to cervix, 4.9 cm. from cornu to cornu and 5.1 cm. in A/P diameter and is oriented by peritoneal reflections. At the center of the anterior fundus there is a 1.6 x 1.6 x 0.8 cm. firm nodule that is on the serosal surface. The serosal surface is otherwise GROSS (Continued) unremarkable. The cervix measures 3.8 cm. in length and 3.2 cm. in diameter. The os is fish mouthed and measures 0.9 cm. in width. The uterus is opened along lateral borders. Upon opening the uterine cavity measures 8.5 cm. in depth, the lower uterine segment and endocervical canal is grossly unremarkable. The endometrium is slightly edematous without evidence of hemorrhage nor necrosis. No tumor is seen. Upon further sectioning the myometrium measures up to 2.3 cm. in thickness and contains multiple nodules that are well subscribed with pink trabecular appearance, without evidence of hemorrhage or necrosis measuring up to 1.6 cm. in greatest dimension. [facility] [facility] Labor sections are submitted as follows: A1=anterior cervix, A2=posterior cervix, B1-B3=anterior endomyometrium including the nodules, B4-B6=posterior endomyometrium including the nodules. [facility]/meetf MICROSCOPIC Part 1: Sections reveal cysts lined by flat to cuboidal cells. The fallopian tube is otherwise unremarkable. Part 2: Sections reveal normal appearing fallopian tube. Part 3: The cervix shows cystically dilated endocervical glands and bland squamous mucosa. There are focal lymphocytic and plasmacytic stromal infiltrate that is associated with nuclear enlargement of the epidermis and mild hyperchromasia. Squamous metaplasia is seen. Sections of endometrium demonstrate secretory type glands, with remnants of secreting material within the glandular lumina. Groups of spiral arterioles are prominent, with incomplete pseudo-decidualized reaction which is not confluent. Granulocytic infiltration is not prominent. The gland to stroma maturation is synchronous. The sections of myometrium demonstrate deeply situated endometrial glands, and specialized stroma, findings consistent with adenomyosis. There are nodular, well-demarcated islands of whorled bundles of fusiform smooth muscle cells with oval nuclei. Mitotic figures, giant cells and anaplasia are absent. PRE OPERATIVE DIAGNOSIS Menometrorrhagia REVIEW CODE CODE: I ----- Signed Electronically signed AZAEL ARTEAGA MD 07/09/14 1409 ----- 32 FIRST MORNING SPECIMENS GENERALLY CONTAIN THE HIGHEST CONCENTRATION OF HCG AND ARE RECOMMENDED FOR EARLY DETECTION OF . 33 COLONY COUNT ! >100,000 CFU/ml Organism 1 ! ENTEROCOCCUS FAECALIS QUANTITY ! MANY ENTEROCOCCUS FAECALIS Target Route Dose M.I.C. RX AB COST ------ ----- ------ ---- -------- ------ -- ------ PENICILLIN G 0.5 S TETRACYCLINE >=16 R NITROFURANTOIN <=16 S AMPICILLIN <=2 S AMOXICILLIN S AMOXICILLIN/CLAVULANATE S AMPICILLIN/SULBACTAM S CIPROFLOXACIN <=0.5 S LEVOFLOXACIN 1 S PIPERACILLIN S VANCOMYCIN 2 S 34 Performed at: [facility] [id number] [employer] Specialist: Starla Bear MD, Phone: [phone] 35 COLONY COUNT ! 10,000 - 20,000 CFU/ml Organism 1 ! URETHRAL ARMAND 36 POSSIBLE UROGENITAL CONTAMINATION. 37 OPERATION/PROCEDURE Colonoscopy DIAGNOSIS: "TRANSVERSE COLON, POLYPECTOMY": TUBULAR ADENOMA. [facility]/joselito GROSS "TRANSVERSE COLON POLYP". The specimen is received in an appropriately labeled container. This contains one rounded horne-pink colored piece of soft tissue measuring up to 0.3 x 0.3 x 0.1 cm.; filtered and submitted in toto within a single cassette. J[facility]/joselito MICROSCOPIC Sections show colonic mucosa with tubular glands lined by columnar cells with elongated and hyperchromatic nuclei. PRE OPERATIVE DIAGNOSIS History of polyps REVIEW CODE CODE: I ----- AZAEL Emmanuel MD 01/24/13 1225 ----- 38 Note: Persistent reduction for 3 months or more in an eGFR <60 mL/min/1.73 m2 defines CKD. Patients with eGFR values >/=60 mL/min/1.73 m2 may also have CKD if evidence of persistent proteinuria is present. The original MDRD equation for estimated GFR is not valid for patients less than 18 years of age. Additional information may be found at www.kdoqi.org. 39 0 - 0.5 ng/mL: No evidence of myocardial injury 0.6 - 1.4 ng/mL: Mild elevation, suggesting possible myocardial injury > 1.4 ng/mL: Consistent with myocardial injury 40 NO GROWTH: FINAL REPORT 41 OPERATION/PROCEDURE Hysteroscopy, D+C DIAGNOSIS: PART 1: "ENDOMETRIAL CURETTINGS": MIXED FRAGMENTS OF WEAKLY PROLIFERATIVE AND INACTIVE ENDOMETRIUM, CONSISTENT WITH PERIMENOPAUSAL CLINICAL DYSFUNCTIONAL UTERINE BLEEDING. PART 2: "SUBMUCOSA LEIOMYOMA": FRAGMENTED SMOOTH MUSCLE, CANNOT RULE OUT LEIOMYOMA(TA). WYS/clf GROSS Part 1. "ENDOMETRIAL CURETTINGS". The specimen is received in an appropriately labeled container. This contains 0.8 mL of pink tissue admixed with mucus. Filtered and submitted in toto within a single cassette. Part 2. The specimen is received in a single container additionally labeled, "SUBMUCOSA LEIOMYOMA". This contains a single horne polygonal piece of soft tissue overall measuring 0.7 x 0.5 x 0.2 cm. in overall dimensions. This is submitted without further sectioning within a single cassette. WS/clf MICROSCOPIC Part 1: Sections reveal a mixture of weakly proliferative and inactively proliferative type glands in a edematous stroma. The glands are tubular, largely nonstratified, and mitotically inactive. Part 2: These fragment(s) of tissue are composed of smooth muscle, endometrial type glands without atypia with surrounding specialized stroma. The glands largely have a tubular outline. I do not see significant mitotic activity, giant cells or anaplasia within the smooth muscle component or the glandular component. The architecture is of nodular whorled bundles of fusiform smooth muscle cells with oval nuclei. PRE OPERATIVE DIAGNOSIS Menometrorrhagia, endometrial polyp. REVIEW CODE CODE: I ----- WASHINGTON Caraballo MD 02/09/12 1404 ----- 42 Approximate Gestational Age and Total BHCG Range: 0.2 - 1 Week........................5-50 mIU/mL 1 - 2 Weeks.....................50- 500 mIU/mL 2 - 3 Weeks..................100-5,000 mIU/mL 3 - 4 Weeks.................500-10,000 mIU/mL 4 - 5 Weeks...............1,000-50, 000 mIU/mL 5 - 6 Weeks.............10,000-100,000 mIU/mL 6 - 8 Weeks.............15,000-200,000 mIU/mL 2 - 3 Months............10,000-100, 000 mIU/mL 43 OPERATION/PROCEDURE US right breast biopsy DIAGNOSIS: "BREAST, RIGHT, US GUIDED BIOPSY": STROMAL FIBROSIS, BENIGN. [facility]/maame T: [id number] INTERPRETATION COMMENT The histologic features do not suggest a process which would have manifested clinically as a discrete mass. Correlation with post procedure mammograms and/or physical exam is suggested to assess adequacy of sampling of the index lesion. GROSS "RIGHT BREAST BIOPSY". The specimen is received in an appropriately labeled container. This contains three cores of pink soft tissue. The shortest measures 0.6, the longest is 1.4 cm.; submitted in toto within a single cassette. WS/maame MICROSCOPIC The sections demonstrate the presence of irregular stromal fibrosis without significant cellularity to suggest a fibroadenoma. This surrounds lobules and ductules and a pattern of hyalinizing fibrosis which radiographically could account for a mass. There is no evidence of abnormal epithelial elements which could be construed as hyperplasia, nor neoplasia. CLINICAL HISTORY Left breast February 2010 PRE OPERATIVE DIAGNOSIS Right breast mass @ 12:00 1.0 cm. from nipple; new solid lesion REVIEW CODE CODE: I ----- AZAEL Emmanuel MD 07/05/11 1247 ----- 44 NO GROWTH: FINAL REPORT 45 NORMAL THROAT ARMAND 46 OPERATION/PROCEDURE Colon. DIAGNOSIS: PART 1: "SIGMOID & RECTAL POLYPS": HYPERPLASTIC POLYP, WITH HEALING CHANGES. PART 2: "TRANSVERSE POLYP": ADENOMATOUS COLONIC MUCOSA, FRAGMENTED WITH TUBULAR ARCHITECTURE. PART 3: "FLAT CECAL POLYP": TUBULAR ADENOMA. Tat[place] 1118 GROSS Part 1; "SIGMOID & RECTAL POLYPS". The specimen is received in an appropriately labeled container. This contains three rounded horne pink colored pieces of soft tissue measuring up to 0.2 cm.; filtered and submitted in toto within a single cassette. Part 2; "TRANSVERSE POLYP". The specimen is received in an appropriately labeled container. This contains six rounded horne colored pieces of soft tissue measuring up to 0.2 cm.; filtered and submitted in toto within a single cassette. Part 3; "FLAT CECAL POLYP". The specimen is received in an appropriately labeled container. This contains one rounded horne colored piece of soft tissue measuring up to 0.3 cm.; filtered and submitted in toto within a single cassette. [place] MICROSCOPIC Part 1: Sections show congested and inflamed colonic mucosa lined by an increased number of goblet cells with smooth muscle ingrowth. The glands have a serrated, saw tooth appearance. The nuclei are bland, and basal. Parts 2,3: Sections show colonic mucosa with tubular glands lined by columnar cells with elongated and hyperchromatic nuclei. PRE OPERATIVE DIAGNOSIS Screening colon REVIEW CODE CODE: I ----- AZAEL Emmanuel MD 09/12/10 ----- 47 NO GROWTH: FINAL REPORT 48 FASTING 49 Negative <0.9 Indeterminate 0.9 - 1.0 Positive >1.0 Performed at: [address] [id number] [employer] Policy Specialist: Tristen Evans MD 50 NO GROWTH: FINAL REPORT 51 NORMALLY MENSTRUATING FEMALES: Follicular Phase:...............39-189 pg/mL Mid-Cycle Peak:.................94-508 pg/mL Luteal Phase:...................48-309 pg/mL POSTMENOPAUSAL FEMALE:..............0- 41 pg/mL 52 NORMALLY MENSTRUATING FEMALES: Follicular Phase:...............4-13 mIU/mL Mid-Cycle Peak:.................5-22 mIU/mL Luteal Phase:...................2 -13 mIU/mL Postmenopausal Female:........20-138 mIU/mL 53 NORMALLY MENSTRUATING FEMALES: Follicular Phase.............1-18 mIU/mL Mid -Cycle Peak.............24-105 mIU/mL Luteal Phase...............0.4-20 mIU/mL Postmenopausal .............15-62 mIU/mL 54 Negative <0.9 Indeterminate 0.9 - 1.0 Positive >1.0 55 Negative 0 - 3 Weak Positive 4 - 10 Positive >10 Tissue Transglutaminase ( tTG) has been identified as the endomysial antigen. Studies have demonstr- ated that endomysial IgA antibodies have over 99% specificity for gluten sensitive enteropathy. 56 Negative 0 - 5 Weak Positive 6 - 9 Positive >9 57 NORMAL THROAT ARMAND 58 COLONY COUNT ! 1,000 - 5,000 CFU/ml Organism 1 ! URETHRAL ARMAND Procedures Date Code Description Status 04/09/2018 [id number] Colonoscopy Completed 03/26/2018 50524 Brief Emotional/Behav Assessment W/ Scoring Doc Per Completed Standard Inst 12/21/2017 [id number] Mammogram Completed 12/20/2016 [id number] Mammogram Completed 09/14/2014 36526 Measure Blood Oxygen Level Single Determination Completed 01/23/2013 12161 Colonoscopy Flexible Diagnostic Completed 11/20/2012 74582 Measure Blood Oxygen Level Single Determination Completed 11/05/2012 01197 Electrocardiogram Complete Completed 06/02/2012 57653 Mammography Unilateral Completed 05/15/2012 01764 Mammography Unilateral Completed 09/09/2010 95177 Colonoscopy Flexible Diagnostic Completed 01/31/2010 85708 Electrocardiogram Complete Completed 11/15/2007 42904 Measure Blood Oxygen Level Single Determination Completed 49712 Mammography Unilateral Completed Encounters Type Date Location Provider Dx Diagnosis Office Visit 05/31/2018 [facility] Roman, R10.10 Upper abdominal pain, 8:00a Melissa, DIRECTOR OF HEMOPHILIA unspecified Office Visit 03/26/2018 [facility] Mercy Brown MD Z00.00 Encntr for general 2:00p adult medical exam w/o abnormal findings Z13.89 Encounter for screening for other disorder Z71.9 Counseling, unspecified Z86.010 Personal history of colonic polyps J30.9 Allergic rhinitis, unspecified K59.00 Constipation, unspecified F17.210 Nicotine dependence, cigarettes, uncomplicated R73.01 Impaired fasting glucose Office Visit 12/19/2017 11:30a [facility] Lucy Hanson PA N39.0 Urinary tract infection, site not specified F17.210 Nicotine dependence, cigarettes, uncomplicated R06.02 Shortness of breath Office Visit 12/11/2017 9:30a [facility] Lucy Hanson PA R30.0 Dysuria Office Visit 03/22/2017 4:15p [facility] Mercy Brown MD J30.9 Allergic rhinitis, unspecified K59.00 Constipation, unspecified F17.210 Nicotine dependence, cigarettes, uncomplicated M54.2 Cervicalgia Z11.59 Encounter for screening for other viral diseases Office Visit 10/31/2016 4:15p [facility] Mercy Brown MD R30.0 Dysuria R31.9 Hematuria, unspecified Office Visit 09/14/2016 3:15p [facility] Mercy Brown MD J30.9 Allergic rhinitis, unspecified K59.00 Constipation, unspecified Z72.0 Tobacco use Z86.010 Personal history of colonic polyps M54.2 Cervicalgia R35.0 Frequency of micturition Office Visit 03/13/2016 2:30p [facility] Mercy Brown MD F17.210 Nicotine dependence, cigarettes, uncomplicated K59.00 Constipation, unspecified J30.9 Allergic rhinitis, unspecified Office Visit 12/13/2015 3:30p [facility] Mercy Brown MD F17.210 Nicotine dependence, cigarettes, uncomplicated R30.0 Dysuria Office Visit 11/11/2015 9:30a [facility] Mercy Brown MD K59.00 Constipation, unspecified J30.9 Allergic rhinitis, unspecified F17.210 Nicotine dependence, cigarettes, uncomplicated R05 Cough Office Visit 05/13/2015 3:45p [facility] Mercy Brown MD 564.00 Constipation Unspecified Office Visit 02/23/2015 8:45a [facility] Mercy Brown MD 477.9 Rhinitis Allergic Cause Unspec 564.00 Constipation Unspecified 723.1 Cervicalgia 305.1 Tobacco Use Disorder Office Visit 11/23/2014 3:30p [facility] Mercy Brown MD 477.9 Rhinitis Allergic Cause Unspec 305.1 Tobacco Use Disorder 564.00 Constipation Unspecified 723.1 Cervicalgia Office Visit 09/14/2014 4:00p [facility] Tiesha Jean MD 461.8 Sinusitis Acute Other 305.1 Tobacco Use Disorder Plan of Treatment Future Appointment(s):07/23/2018 4:00 pm - Mercy Brown MD at [facility]03/21/2019 7:40 am - Schedule, Laboratory at [facility]03/28/2019 8:15 am - Mercy Brown MD at [facility]06/27/2018 - Mercy Brown MDF17.210 Nicotine dependence, cigarettes, uncomplicatedComments:has had a few cigarettes - suggest she use nicotine gum for cravings. chew the gum until the craving passes, then save the gum - it can be used 6-8 times.R10.10 Upper abdominal pain, unspecifiedComments:reviewed ultrasound=this is reassuring. Highly suspect this is related to her ovarian cyst. Dr Blair is following this. She will call Dr Blair for follow-up. ok to stop [id number] Body mass index (BMI) 25.0-25.9, adultFollow up: follow-up as scheduled.
[2018-07-16 08:46] VITALS: BP 129/78
--- NOTE | 2018-07-16 08:56 | UC ---
Throat Pain/Nasal [place] HPI - HPI Summary HPI Summary: sinus pain and pressure x 2 weeks nasal congestion , pnd, + dry cough , bilateral ear pain no fever, no chills, - History of Current Complaint Chief Complaint: UCRespiratory Stated Complaint: SINUS COUGH Time Seen by Provider: 07/16/18 08:42 Hx Obtained From: Patient Hx Last Menstrual Period: 06/2014 Onset/Duration: Gradual Onset, Lasting Weeks - 2, Still Present Severity: Moderate Pain Intensity: 0 Cough: Nonproductive Associated Signs & Symptoms: Positive: Sinus Discomfort, Nasal Discharge. Negative: Wheezing, Hoarseness, Fever, Vomiting, Rash - Allergies/Home Medications Allergies/Adverse Reactions: Allergies Allergy/AdvReac Type Severity Reaction Status Date / Time amoxicillin Allergy Severe Rash Verified 07/16/18 08:41 celecoxib [From Celebrex] Allergy Severe Chest Pain Verified 07/16/18 08:41 codeine Allergy Tachycardia Verified 07/16/18 08:41 nitrofurantoin Allergy Difficulty Verified 07/16/18 08:41 [From Macrobid] Breathing Home Medications: Home Medications Azelastine 0.15% NASAL(NF) [Astepro 0.15% NASAL (NF)] 2 spray BOTH NARES BID PRN 07/16/18 [History Confirmed 07/16/18] Pseudoephedrine HCL ER TAB* [Sudafed 12 Hour*] 120 mg PO BID PRN 07/16/18 [ History Confirmed 07/16/18] guaiFENesin ER TAB [Mucinex*] 1,200 mg PO BID PRN 07/16/18 [History Confirmed ] PMH/Surg Hx/FS Hx/Imm Hx - Surgical History Surgical History: Yes Surgery Procedure, Year, and Place: 2008 BILATERAL BREAST REDUCTION, [place]. 2010 DILATION AND CURETTAGE, [facility]. 1984 & 1985 CSECTION X 2, [place]. 1986 OPEN CHOLECYSTECTOMY, [place]. may 2012 bilat breast biopsies, benign,HYSTERECTOMY 2013 - Family History Known Family History: Positive: Other - No FMH urinary disorder Negative: Cardiac Disease, Hypertension, Diabetes - Social History Alcohol Use: Rare Substance Use Type: None Smoking Status (MU): Former Smoker Type: Cigarettes Amount Used/How Often: 1/4 PPD Length of Time of Smoking/Using Tobacco: <1/4 PPD x 35 Years Have You Smoked in the Last Year: Yes When Did the Patient Quit Smoking/Using Tobacco: 01/2018 - Immunization History Most Recent Influenza Vaccination: Not the 2015/2016 Season Most Recent Tetanus Shot: Unsure Most Recent Pneumonia Vaccination: Never Review of Systems All Other Systems Reviewed And Are Negative: Yes Constitutional: Positive: Negative Skin: Positive: Negative Eyes: Positive: Negative ENT: Positive: Negative, Sore Throat, Ear Ache, Sinus Congestion, Sinus Pain/ Tenderness Respiratory: Positive: Cough Cardiovascular: Positive: Negative Gastrointestinal: Positive: Negative Is Patient Immunocompromised?: No Physical Exam Triage Information Reviewed: Yes Appearance: Well-Appearing, No Pain Distress, Well-Nourished Vital Signs: Initial Vital Signs Temp 98.2 F 07/16/18 08:39 Pulse 90 07/16/18 08:39 Resp 16 07/16/18 08:39 BP 129/78 07/16/18 08:39 Pulse Ox 98 07/16/18 08:39 Vital Signs Reviewed: Yes Eye Exam: Normal Eyes: Positive: Conjunctiva Clear ENT: Positive: Normal ENT inspection, Hearing grossly normal, Pharyngeal erythema, Nasal congestion, Nasal drainage, TMs normal, Sinus tenderness. Negative: TM bulging, TM dull, TM red, Tonsillar swelling, Tonsillar exudate Neck: Positive: Supple, Nontender, No Lymphadenopathy Respiratory: Positive: Chest non-tender, Lungs clear, Normal breath sounds Cardiovascular: Positive: RRR, No Murmur, Pulses Normal Skin Exam: Normal Throat Pain/Nasal Course/Dx - Differential Dx/Diagnosis Provider Diagnoses: sinusitis Discharge - Sign-Out/Discharge Documenting (check all that apply): Patient Departure All imaging exams completed and their final reports reviewed: No Studies - Discharge Plan Condition: Stable Disposition: HOME Prescriptions: DOXYcycline CAP(*) [DOXYcycline 100MG CAP(*)] 100 mg PO BID #20 cap Patient Education Materials: Sinusitis (ED) Referrals: Mercy Brown MD [Primary Care Provider] - If Needed - Billing Disposition and Condition Condition: STABLE Disposition: Home
== END 2018-07-16 08:55 | disposition home or self-care (01) ==
LOC: UCCORT 08:25
DX: J32.9 Chronic sinusitis, unspecified (principal); Z88.0 Allergy status to penicillin; Z88.1 Allergy status to other antibiotic agents; Z88.5 Allergy status to narcotic agent; Z87.891 Personal history of nicotine dependence
CPT/HCPCS: 99212; G0463